=== PATIENT | female | born 1975 | race Caucasian/White ===

== ENCOUNTER 2016-12-23 21:33 | Emergency (ER) | payer MEDICAID ==
--- NOTE | 2016-12-23 21:42 | ER Document Report ---
ED Medical Screen (RME) - General Stated Complaint: RAPID HEART RATE Mode of Arrival: Ambulatory Information source: Patient Notes: pt pesents to the ED with c/o SOB, heart palpitations, nausea, no chest pain, c/ o back pain. Hx of ICD pacemaker placed in 2013 for hx of 4 massive FL and two stents, angioplasty. Pt HR is 160's. Denies f/v/d. Denies taking any type of cold medications, energy drinks. I have greeted and performed a rapid initial assessment of this patient. A comprehensive ED assessment and evaluation of the patient, analysis of test results and completion of the medical decision making process will be conducted by additional ED providers. TRAVEL OUTSIDE OF THE [place] IN LAST 30 DAYS: No - Related Data Allergies/Adverse Reactions: lisinopril [Lisinopril] Allergy (Mild, Verified 01/30/16 23:26) Past Medical History - Social History Family history: Reviewed & Not Pertinent - Past Medical History Cardiac Medical History: Reports: Hx Coronary Artery Disease, Hx Heart Attack - x5, Hx Hypercholesterolemia, Hx Hypertension Pulmonary Medical History: Reports: Hx Bronchitis, Hx COPD, Hx Pneumonia GI Medical History: Reports: Hx Gastroesophageal Reflux Disease Skin Medical History: Reports Hx Eczema Psychiatric Medical History: Reports: Hx Depression Past Surgical History: Reports: Hx Cardiac Catheterization - w/ stent, Hx Cardiac Surgery - Defibrilator 08/03/15, Hx Section, Hx Gynecologic Surgery - Tubular Ligation - Immunizations Immunizations up to date: No Hx Diphtheria, Pertussis, Tetanus Vaccination: Yes
[2016-12-23] MEDS ORDERED: CARVEDILOL 6.25 MG TABLET PO ONE (22:42)
--- NOTE | 2016-12-23 22:44 | ER Document Report ---
ED General - General Chief Complaint: Irregular Pulse Stated Complaint: RAPID HEART RATE Mode of Arrival: Ambulatory Notes: Patient is a 41-year-old female with past medical history of CHF with EF less than 30% status post AICD and pacer placement, history of tachydysrhythmias, ACS , and hypertension who presents after having a sudden onset of palpitations just prior to arrival. States that she was doing laundry when she abruptly began to feel like "my heart was beating out of my chest". She denies any associated shortness of breath, chest pain or syncope. States she's had similar symptoms in the past but had been on beta blockers previously to help control these episodes. States that her parachute accessories attacher abruptly took her off all her medications except her Plavix several days ago and her last dose of beta manjeet was 2 days ago. At time of my assessment, patient states all her symptoms have spontaneously resolved. During the episode she did not noted anything seemed to improve or worsen her symptoms. She did not do anything to stop the symptoms. She has not seen her primary care doctor regarding today's concerns. TRAVEL OUTSIDE OF THE [place] IN LAST 30 DAYS: No - Related Data Allergies/Adverse Reactions: lisinopril [Lisinopril] Allergy (Mild, Verified 01/30/16 23:26) Past Medical History - General Information source: Patient - Social History Smoking Status: Current Every Day Smoker Chew tobacco use (# tins/day): No Frequency of alcohol use: None Drug Abuse: None Lives with: Spouse/Significant other Family History: CAD, Hypertension Patient has suicidal ideation: No Patient has homicidal ideation: No - Past Medical History Cardiac Medical History: Reports: Hx Coronary Artery Disease, Hx Heart Attack - x5, Hx Hypercholesterolemia, Hx Hypertension Pulmonary Medical History: Reports: Hx Bronchitis, Hx COPD, Hx Pneumonia Renal/ Medical History: Denies: Hx Peritoneal Dialysis GI Medical History: Reports: Hx Gastroesophageal Reflux Disease Skin Medical History: Reports Hx Eczema Psychiatric Medical History: Reports: Hx Depression Past Surgical History: Reports: Hx Cardiac Catheterization - w/ stent, Hx Cardiac Surgery - Defibrilator 08/03/15, Hx Section, Hx Gynecologic Surgery - Tubular Ligation - Immunizations Immunizations up to date: No Hx Diphtheria, Pertussis, Tetanus Vaccination: Yes Review of Systems - Review of Systems Notes: Constitutional: Negative for fever. HENT: Negative for sore throat. Eyes: Negative for visual changes. Cardiovascular: Negative for chest pain. Respiratory: Negative for shortness of breath. Gastrointestinal: Negative for abdominal pain, vomiting or diarrhea. Genitourinary: Negative for dysuria. Musculoskeletal: Negative for back pain. Skin: Negative for rash. Neurological: Negative for headaches, weakness or numbness. 10 point ROS negative except as marked above and in HPI. Physical Exam - Vital signs Vitals: Temp Pulse Resp BP Pulse Ox 97.8 F 167 H 20 167/115 H 98 12/23/16 21:40 12/23/16 21:40 12/23/16 21:40 12/23/16 21:40 12/23/16 21:40 Interpretation: Tachycardic Notes: PHYSICAL EXAMINATION: GENERAL: Well-appearing, well-nourished and in no acute distress. HEAD: Atraumatic, normocephalic. EYES: Pupils equal round and reactive to light, extraocular movements intact, sclera anicteric, conjunctiva are normal. ENT: nares patent, oropharynx clear without exudates. Moist mucous membranes. NECK: Normal range of motion, supple without lymphadenopathy LUNGS: Breath sounds clear to auscultation bilaterally and equal. No wheezes rales or rhonchi. HEART: Regular rate and rhythm without murmurs ABDOMEN: Soft, nontender, normoactive bowel sounds. No guarding, no rebound. No masses appreciated. EXTREMITIES: Normal range of motion, no pitting or edema. No cyanosis. NEUROLOGICAL: No focal neurological deficits. Moves all extremities spontaneously and on command. PSYCH: Normal mood, normal affect. SKIN: Warm, Dry, normal turgor, no rashes or lesions noted. Course - Re-evaluation Re-evalutation: 12/23/16 22:42 Patient presents with sinus tachycardia apparently an initial rate was 167 in triage now in the 110 at the time of my assessment. Normal sinus rhythm with intermittent PVCs. Patient does have a history of severe CHF with a EF apparently below 30%. She has a AICD as well as pacemaker in place and has a history of tachydysrhythmias in the past. Apparently her parachute accessories attacher her off all of her medications except carvedilol and isosorbide dinitrate several days ago and she has not had her carvedilol for the past 2 days. This would appropriately explain her episode of tachycardia which has now mostly resolved. She denies any chest pain or shortness of breath currently or at the time of her episode of palpitations. Her clinical history is not consistent with an aortic dissection or acute pulmonary embolus given the absence of any symptoms at this time. 12/24/16 01:10 Patient has remained completely asymptomatic. Her heart rate has normalized after receiving her normal home carvedilol. Repeat EKG remains without ischemic changes. Her laboratories likewise are unremarkable.At this time will discharge with return precautions and follow-up recommendations. Verbal discharge instructions given a the bedside and opportunity for questions given. Medication warnings reviewed. Patient is in agreement with this plan and has verbalized understanding of return precautions and the need for primary care follow-up in the next 24-72 hours. - Vital Signs Vital signs: Temp Pulse Resp BP Pulse Ox 97.7 F 100 16 142/90 H 96 12/24/16 01:55 12/24/16 01:55 12/24/16 01:55 12/24/16 01:55 12/24/16 01:55 - Laboratory Result Diagrams: 12/23/16 22:51 12/23/16 22:51 Laboratory results interpreted by me: 12/23/16 12/23/16 12/23/16 22:51 22:51 22:51 RDW 16.5 H Creatine Kinase 524 H CK-MB (CK-2) 7.87 H - Diagnostic Test Radiology reviewed: Image reviewed, Reports reviewed Radiology results interpreted by me: 12/24/16 03:39 Chest x-ray: No acute infiltrate - EKG Interpretation by Me Additional EKG results interpreted by me: 12/24/16 01:10 First EKG: Sinus tachycardia, rate 111. No ST elevations or depressions. T- wave inversions in V5 and V6 unchanged from prior. QTC is 468 Second EKG: Rate 96. Sinus rhythm. No ST elevations or depressions. T-wave inversions remained persistent in V5 and 6. QTC is 486. Discharge - Discharge Clinical Impression: Palpitations, Tachycardia Condition: Good Disposition: HOME, SELF-CARE Additional Instructions: Please follow-up closely with cardiology regarding your palpitations. You have been restarted on carvedilol. Return if you pass out, have shortness of breath , persistent vomiting, develop significant chest pain, or have any other symptoms that are concerning to you. Prescriptions: Carvedilol [Coreg 6.25 mg Tablet] 6.25 mg PO Q12 #60 tablet
[2016-12-23 22:57] LABS: ABSOLUTE BASOPHILS # (AUTO) 0.1 10^3/uL (0.0-0.2); ABSOLUTE EOSINOPHILS # (AUTO) 0.1 10^3/uL (0.0-0.6); ABSOLUTE LYMPHOCYTES (AUTO) 3.4 10^3/uL (0.5-4.7); ABSOLUTE MONOCYTES (AUTO) 0.5 10^3/uL (0.1-1.4); ABSOLUTE NEUT (AUTO) 4.1 10^3/uL (1.7-8.2); BASOPHILS % (AUTO) 1.2 % (0-2); EOSINOPHILS % (AUTO) 1.3 % (0-6); HEMATOCRIT 40.6 % (36.0-47.0); HEMOGLOBIN 13.9 g/dL (12.0-15.5); HGB HCT DIFFERENCE 1.1; LYMPHOCYTES % (AUTO) 41.3 % (13-45); MEAN CORPUSCULAR HEMOGLOBIN 30.1 pg (27.0-33.4); MEAN CORPUSCULAR HGB CONC 34.3 g/dL (32.0-36.0); MEAN CORPUSCULAR VOLUME 88 fl (80-97); MONOCYTES % (AUTO) 5.9 % (3-13); RED BLOOD COUNT 4.62 10^6/uL (3.72-5.28); RED CELL DISTRIBUTION WIDTH 16.5 % (11.5-14.0); SEGMENTED NEUTROPHILS % (AUTO) 50.3 % (42-78); WHITE BLOOD COUNT 8.3 10^3/uL (4.0-10.5)
[2016-12-23 23:16] LABS: ALANINE AMINOTRANSFERASE 31 U/L (9-52); ALBUMIN 4.1 g/dL (3.5-5.0); ALKALINE PHOSPHATASE 80 U/L (38-126); ANION GAP 9 (5-19); ASPARTATE AMINO TRANSFERASE 23 U/L (14-36); BILIRUBIN,TOTAL 0.5 mg/dL (0.2-1.3); BLOOD UREA NITROGEN 12 mg/dL (7-20); CALCIUM 10.2 mg/dL (8.4-10.2); CARBON DIOXIDE 29 mmol/L (22-30); CHLORIDE 103 mmol/L (98-107); CREATINE KINASE 524 U/L (30-135); CREATININE RESULT 0.89 mg/dL (0.52-1.25); GLUCOSE 90 mg/dL (75-110); POTASSIUM 4.4 mmol/L (3.6-5.0); SODIUM 141.2 mmol/L (137-145); TOTAL PROTEIN 7.3 g/dL (6.3-8.2)
[2016-12-23 23:28] LABS: CREATINE KINASE MB 7.87 ng/mL (<4.55); TROPONIN I 0.017 ng/mL
--- NOTE | 2016-12-23 23:50 | EKG REPORT ---
SEVERITY:- ABNORMAL ECG - SINUS TACHYCARDIA FRANK, CONSIDER BIATRIAL ABNORMALITIES NONSPECIFIC INTRAVENTRICULAR CONDUCTION DELAY LVH WITH SECONDARY REPOLARIZATION ABNORMALITY PROBABLE INFERIOR INFARCT, AGE INDETERMINATE : Confirmed by: Chetan Jaramillo 23-Dec-2016 23:49:10
[2016-12-24 01:58] VITALS: BP 142/90
--- NOTE | 2016-12-24 13:51 | EKG REPORT ---
SEVERITY:- ABNORMAL ECG - SINUS RHYTHM NONSPECIFIC INTRAVENTRICULAR CONDUCTION DELAY PROBABLE LVH WITH SECONDARY REPOL ABNRM INFERIOR INFARCT, AGE INDETERMINATE : Confirmed by: Chetan Jaramillo 24-Dec-2016 13:51:09
== END 2016-12-24 01:55 | disposition home or self-care (01) ==
LOC: ER 21:33
DX: R00.2 Palpitations (principal); R00.0 Tachycardia, unspecified; I50.9 Heart failure, unspecified; F17.200 Nicotine dependence, unspecified, uncomplicated
CPT/HCPCS: 93005 ×2; 99285; 36415; 82553; 82550; 84703; 85025; 80053; 84484; 71010; 93010 ×2; J3490

== ENCOUNTER 2017-05-17 14:25 | Observation (INO) | payer MEDICAID ==
--- NOTE | 2017-05-17 14:33 | ER Document Report ---
ED Cardiac - General Chief Complaint: Chest Pain Stated Complaint: CHEST PAIN Time Seen by Provider: 05/17/17 14:28 Notes: Patient is a 42-year-old female, past medical history CAD with stents ([place] x4 times), CHF with AICD placement in 2007, hypertension, presents with 2 hours of left upper chest pain with radiation into her left shoulder. She was at rest when this started. She was given 324 mg aspirin and 3 sublingual nitros with some relief of her chest pain, although she said it is still mildly present. Patient denies shortness of breath, nausea, vomiting, numbness, tingling, fevers , cough, leg swelling or abdominal pain. TRAVEL OUTSIDE OF THE [place] IN LAST 30 DAYS: No - Related Data Allergies/Adverse Reactions: lisinopril [Lisinopril] Allergy (Mild, Verified 01/30/16 23:26) Past Medical History - General Information source: Patient - Social History Smoking Status: Current Every Day Smoker Family History: CAD, Hypertension - Past Medical History Cardiac Medical History: Reports: Hx Coronary Artery Disease, Hx Heart Attack - x5, Hx Hypercholesterolemia, Hx Hypertension Pulmonary Medical History: Reports: Hx Bronchitis, Hx COPD, Hx Pneumonia Renal/ Medical History: Denies: Hx Peritoneal Dialysis GI Medical History: Reports: Hx Gastroesophageal Reflux Disease Skin Medical History: Reports Hx Eczema Psychiatric Medical History: Reports: Hx Depression Past Surgical History: Reports: Hx Cardiac Catheterization - w/ stent, Hx Cardiac Surgery - Defibrilator 08/03/15, Hx Section, Hx Gynecologic Surgery - Tubular Ligation - Immunizations Immunizations up to date: No Hx Diphtheria, Pertussis, Tetanus Vaccination: Yes Review of Systems - Review of Systems Notes: REVIEW OF SYSTEMS: CONSTITUTIONAL: -fevers, -chills EENT: -eye pain, -difficulty swallowing, -nasal congestion CARDIOVASCULAR: +chest pain, -syncope. RESPIRATORY: -cough, -SOB GASTROINTESTINAL: -abdominal pain, - nausea, -vomiting, -diarrhea GENITOURINARY: -dysuria, -hematuria MUSCULOSKELETAL: -back pain, -neck pain SKIN: -rash or skin lesions. HEMATOLOGIC: -easy bruising or bleeding. LYMPHATIC: -swollen, enlarged glands. NEUROLOGICAL: -altered mental status or loss of consciousness, -headache, - neurologic symptoms PSYCHIATRIC: -anxiety, -depression. ALL OTHER SYSTEMS REVIEWED AND NEGATIVE. Physical Exam - Vital signs Vitals: Temp Pulse Resp BP Pulse Ox 98.1 F 85 14 107/65 95 05/17/17 14:30 05/17/17 14:30 05/17/17 14:30 05/17/17 14:30 05/17/17 14:30 - Notes Notes: PHYSICAL EXAMINATION: GENERAL: Well-appearing, well-nourished and in no acute distress. HEAD: Atraumatic, normocephalic. EYES: Pupils equal round and reactive to light, extraocular movements intact, sclera anicteric, conjunctiva are normal. ENT: nares patent, oropharynx clear without exudates. Moist mucous membranes. NECK: Normal range of motion, supple without lymphadenopathy LUNGS: Breath sounds clear to auscultation bilaterally and equal. No wheezes rales or rhonchi. HEART: Regular rate and rhythm without murmurs ABDOMEN: Soft, nontender, normoactive bowel sounds. No guarding, no rebound. No masses appreciated. EXTREMITIES: Normal range of motion, no pitting or edema. No cyanosis. NEUROLOGICAL: Cranial nerves grossly intact. Normal speech, normal gait. Normal sensory and motor exams. PSYCH: Normal mood, normal affect. SKIN: Warm, Dry, normal turgor, no rashes or lesions noted. Course - Re-evaluation Re-evalutation: Patient's chest pain resolved with nitro paste. She was very provided with aspirin by EMS prior to arrival. Patient's primary care physician is Lore Marie and her information technology teacher is in [place]. Her HEART score is 5 (1 for EKG, 2 for risk factors, 2 for concerning story). First troponin negative and EKG unchanged. Symptoms atypical for PE or aortic dissection at this time. 05/17/17 15:[address] Pillai and she was admit patient to [facility] Observ[facility]. - Vital Signs Vital signs: Temp Pulse Resp BP Pulse Ox 98.1 F 85 14 107/65 95 05/17/17 14:30 05/17/17 14:30 05/17/17 14:30 05/17/17 14:30 05/17/17 14:30 - Laboratory Result Diagrams: 05/17/17 14:38 05/17/17 14:38 Laboratory results interpreted by me: 05/17/17 05/17/17 14:38 14:38 RDW 14.9 H Creatine Kinase 432 H - Diagnostic Test Radiology reviewed: Image reviewed, Reports reviewed - EKG Interpretation by Me EKG shows normal: Sinus rhythm Rate: Normal Rhythm: PVC's - single [place]/QRS: IVCD When compared to previous EKG there are: No significant change - old EKG 2016 Additional EKG results interpreted by me: No STEMI Discharge - Discharge Clinical Impression: Chest pain Qualifiers: Chest pain type: unspecified Qualified Code(s): R07.9 - Chest pain, unspecified Condition: Stable Disposition: ADMITTED OBSERVATION [facility] Unit Admitted: Telemetry
[2017-05-17 14:51] LABS: ABSOLUTE BASOPHILS # (AUTO) 0.1 10^3/uL (0.0-0.2); ABSOLUTE LYMPHOCYTES (AUTO) 1.7 10^3/uL (0.5-4.7); ABSOLUTE MONOCYTES (AUTO) 0.3 10^3/uL (0.1-1.4); ABSOLUTE NEUT (AUTO) 5.2 10^3/uL (1.7-8.2); BASOPHILS % (AUTO) 0.8 % (0-2); EOSINOPHILS % (AUTO) 0.7 % (0-6); HEMATOCRIT 39.8 % (36.0-47.0); HEMOGLOBIN 13.8 g/dL (12.0-15.5); HGB HCT DIFFERENCE 1.6; LYMPHOCYTES % (AUTO) 23.1 % (13-45); MEAN CORPUSCULAR HEMOGLOBIN 32.1 pg (27.0-33.4); MEAN CORPUSCULAR HGB CONC 34.6 g/dL (32.0-36.0); MEAN CORPUSCULAR VOLUME 93 fl (80-97); MONOCYTES % (AUTO) 4.5 % (3-13); RED BLOOD COUNT 4.29 10^6/uL (3.72-5.28); RED CELL DISTRIBUTION WIDTH 14.9 % (11.5-14.0); SEGMENTED NEUTROPHILS % (AUTO) 70.9 % (42-78); WHITE BLOOD COUNT 7.4 10^3/uL (4.0-10.5)
[2017-05-17 15:08] LABS: ALANINE AMINOTRANSFERASE 23 U/L (9-52); ALKALINE PHOSPHATASE 69 U/L (38-126); ANION GAP 11 (5-19); ASPARTATE AMINO TRANSFERASE 24 U/L (14-36); BILIRUBIN,DIRECT 0.3 mg/dL (0.0-0.4); BILIRUBIN,TOTAL 0.5 mg/dL (0.2-1.3); BLOOD UREA NITROGEN 8 mg/dL (7-20); CALCIUM 8.8 mg/dL (8.4-10.2); CARBON DIOXIDE 24 mmol/L (22-30); CHLORIDE 102 mmol/L (98-107); CREATINE KINASE 432 U/L (30-135); CREATININE RESULT 0.83 mg/dL (0.52-1.25); GLUCOSE 107 mg/dL (75-110); POTASSIUM 4.7 mmol/L (3.6-5.0); SODIUM 137.1 mmol/L (137-145); TOTAL PROTEIN 7.3 g/dL (6.3-8.2)
--- NOTE | 2017-05-17 15:14 | RADIOLOGY REPORT (SQ) ---
EXAM DESCRIPTION: CHEST SINGLE VIEW COMPLETED DATE/TIME: 05/17/2017 3:01 pm REASON FOR STUDY: cp COMPARISON: 12/23/2016 EXAM PARAMETERS: NUMBER OF VIEWS: One view. TECHNIQUE: Single frontal radiographic view of the chest acquired. RADIATION DOSE: NA LIMITATIONS: None. FINDINGS: LUNGS AND PLEURA: No opacities, masses or pneumothorax. No pleural effusion. MEDIASTINUM AND HILAR STRUCTURES: No masses. Contour normal. HEART AND VASCULAR STRUCTURES: Heart normal in size. Normal vasculature. BONES: No acute findings. HARDWARE: Pacemaker/defibrillator. OTHER: No other significant finding. IMPRESSION: NO ACUTE RADIOGRAPHIC FINDING IN THE CHEST. TECHNICAL DOCUMENTATION: JOB ID: [id number]
[2017-05-17] MEDS ORDERED: NITROGLYCERIN 2% OINTMENT 1 GM PACKET TP ONE (15:48)
[2017-05-17] MEDS ORDERED: ONDANSETRON HCL INJ/PF 4 MG/2 ML SDV IV PRN (16:14)
[2017-05-17] MEDS ORDERED: MORPHINE SULFATE 10 MG/ML INJ IV PRN (16:14)
[2017-05-17] MEDS ORDERED: DIAZEPAM 5 MG TABLET PO PRN (16:14)
[2017-05-17] MEDS ORDERED: NITROGLYCERIN 0.4 MG/TAB 25 TAB/BOTTLE SL PRN (16:14)
[2017-05-17] MEDS ORDERED: FUROSEMIDE INJ/PF 20 MG/2 ML SDV IV ONE (16:45)
--- NOTE | 2017-05-17 16:53 | PDOC H&P ---
History of Present Illness Admission Date/PCP: 05/17/17 Lore frank History of Present Illness: ERNESTO CUEVAS is a 42 year old female with a past medical history significant for coronary artery disease, COPD, emphysema, ongoing tobacco abuse , AICD with a last known EF of 25% who presents to the emergency department with chest pain. Patient reports she was sitting and began having substernal chest pain that radiated to her left arm. This was associated with nausea and vomiting as well as diaphoresis but no shortness of breath. Patient also reports that she had a metallic taste in her mouth prior to this. She does report she has been under more stress than normal. She reports that it was worse with laying and improved slightly with nitroglycerin but has not fully resolved. She reports that she is previously been on Xanax. Patient is referred to hospital service for chest pain. Patient's medications are currently unavailable and are currently being reconciled. This current list is automatically generated by [employer]. Past Medical History Cardiac Medical History: Reports: Coronary Artery Disease, Myocardial Infarction - x5, Hyperlipidema, Hypertension Pulmonary Medical History: Reports: Bronchitis, Chronic Obstructive Pulmonary Disease (COPD), Pneumonia GI Medical History: Reports: Gastroesophageal Reflux Disease Skin Medical History: Reports: Eczema Psychiatric Medical History: Reports: Depression, General Anxiety Disorder, Tobacco Dependency Past Surgical History Past Surgical History: Reports: Cardiac Catheterization - w/ stent, Section Social History Smoking Status: Current Every Day Smoker Cigarettes Packs Per Day: 1 Frequency of Alcohol Use: None Hx Recreational Drug Use: No Hx Prescription Drug Abuse: No - Advance Directive Resuscitation Status: Full Code Surrogate healthcare decision maker:: Mother, Guerda Cuevas Family History Family History: CAD, Hypertension Parental Family History Reviewed: Yes Children Family History Reviewed: Yes Sibling(s) Family History Reviewed.: Yes Medication/Allergy Allergies/Adverse Reactions: lisinopril [Lisinopril] Allergy (Mild, Verified 01/30/16 23:26) Review of Systems Constitutional: ABSENT: chills, fever(s), headache(s), weight gain, weight loss Eyes: ABSENT: visual disturbances Ears: ABSENT: hearing changes Cardiovascular: PRESENT: as per HPI, chest pain, edema. ABSENT: dyspnea on exertion, orthropnea, palpitations Respiratory: PRESENT: cough, dyspnea. ABSENT: hemoptysis, sputum Gastrointestinal: PRESENT: as per HPI, heartburn, nausea, vomiting. ABSENT: abdominal pain, constipation, diarrhea, hematemesis, hematochezia, melena Genitourinary: ABSENT: dysuria, hematuria Musculoskeletal: ABSENT: joint swelling Integumentary: ABSENT: rash, wounds Neurological: ABSENT: abnormal gait, abnormal speech, confusion, dizziness, focal weakness, syncope Psychiatric: ABSENT: anxiety, depression, homidical ideation, suicidal ideation Endocrine: ABSENT: cold intolerance, heat intolerance, polydipsia, polyuria Hematologic/Lymphatic: ABSENT: easy bleeding, easy bruising Physical Exam Vital Signs: Temp Pulse Resp BP Pulse Ox 98.1 F 85 14 107/65 95 05/17/17 14:30 05/17/17 14:30 05/17/17 14:30 05/17/17 14:30 05/17/17 14:30 General appearance: PRESENT: obese, well-developed, well-nourished Head exam: PRESENT: atraumatic, normocephalic Eye exam: PRESENT: conjunctiva pink, EOMI, PERRLA. ABSENT: scleral icterus Ear exam: PRESENT: normal external ear exam Mouth exam: PRESENT: moist, tongue midline Neck exam: ABSENT: JVD, lymphadenopathy, thyromegaly, tracheal deviation Respiratory exam: PRESENT: prolonged expiratory phas, symmetrical, unlabored. ABSENT: accessory muscle use, clear to auscultation teri - Coarse bilaterally, rales, rhonchi, tachypnea, wheezes Cardiovascular exam: PRESENT: RRR, +S1, +S2. ABSENT: diastolic murmur, rubs, systolic murmur Pulses: PRESENT: normal dorsalis pedis pul Vascular exam: PRESENT: normal capillary refill GI/Abdominal exam: PRESENT: normal bowel sounds, soft. ABSENT: distended, firm , guarding, mass, Hickman's sign, organolmegaly, rebound, rigid, tenderness Rectal exam: PRESENT: deferred Extremities exam: PRESENT: full ROM, +1 edema. ABSENT: calf tenderness, clubbing Neurological exam: PRESENT: alert, awake, oriented to person, oriented to place , oriented to time, oriented to situation, CN II-XII grossly intact. ABSENT: motor sensory deficit Psychiatric exam: PRESENT: appropriate affect, normal mood. ABSENT: homicidal ideation, suicidal ideation Skin exam: PRESENT: dry, intact, warm. ABSENT: cyanosis, rash Results Laboratory Results: 05/17/17 14:38 05/17/17 14:38 05/17/17 05/17/17 14:38 14:38 WBC 7.4 RBC 4.29 Hgb 13.8 Hct 39.8 MCV 93 MCH 32.1 MCHC 34.6 RDW 14.9 H Plt Count 275 Seg Neutrophils % 70.9 Lymphocytes % 23.1 Monocytes % 4.5 Eosinophils % 0.7 Basophils % 0.8 Absolute Neutrophils 5.2 Absolute Lymphocytes 1.7 Absolute Monocytes 0.3 Absolute Eosinophils 0.0 Absolute Basophils 0.1 Sodium 137.1 Potassium 4.7 Chloride 102 Carbon Dioxide 24 Anion Gap 11 BUN 8 Creatinine 0.83 Est GFR ( Amer) > 60 Est GFR (Non-Af Amer) > 60 Glucose 107 Calcium 8.8 Total Bilirubin 0.5 AST 24 ALT 23 Alkaline Phosphatase 69 Total Protein 7.3 Albumin 4.0 05/17/17 05/17/17 14:38 14:38 Creatine Kinase 432 H Troponin I < 0.012 EKG Comments: Old inferior PR, PVC, LVH, NSR Impressions: Chest X-Ray 05/17/17 14:27 IMPRESSION: NO ACUTE RADIOGRAPHIC FINDING IN THE CHEST. Assessment & Plan - Diagnosis (1) Chest pain Qualifiers: Chest pain type: unspecified Qualified Code(s): R07.9 - Chest pain, unspecified Is this a current diagnosis for this admission?: YesPlan: Patient pain sounds as though it is associated with GERD or indigestion. Patient reports that she only infrequently takes her Prilosec. However, in light of patient's significant past coronary history we will observe her and rule out for acute coronary syndrome. Place patient on telemetry. Patient has an allergy to RUBINA inhibitors. Nitro as needed (2) COPD (chronic obstructive pulmonary disease) Qualifiers: COPD type: emphysema Emphysema type: unspecified Qualified Code( s): J43.9 - Emphysema, unspecified Is this a current diagnosis for this admission?: YesPlan: As needed nebulized treatments (3) Obesity Qualifiers: Obesity type: due to excess calories Obesity classification: adult class 1 (BMI 30 ? 34.9) Body mass index: unspecified BMI Is this a current diagnosis for this admission?: Yes (4) Hypertension Qualifiers: Hypertension type: essential hypertension Qualified Code(s): I10 - Essential (primary) hypertension Is this a current diagnosis for this admission?: Yes (5) Anxiety Is this a current diagnosis for this admission?: Yes (6) GERD (gastroesophageal reflux disease) Qualifiers: Esophagitis presence: esophagitis presence not specified Qualified Code(s): K21.9 - Gastro-esophageal reflux disease without esophagitis Is this a current diagnosis for this admission?: YesPlan: Give patient a GI cocktail and started on PPI twice daily. (7) Coronary atherosclerosis Qualifiers: Coronary Disease-Associated Artery/Lesion type: [place] artery [place] vs. transplanted heart: [place] heart Associated angina: with unspecified angina Qualified Code(s): I25.119 - Atherosclerotic heart disease of [place] coronary artery with unspecified angina pectoris Is this a current diagnosis for this admission?: Yes (8) Tobacco abuse Is this a current diagnosis for this admission?: YesPlan: Encourage patient to stop. Nicotine patch Counseling greater than 3 minutes - Time Time Spent: 50 to 70 Minutes Medications reviewed and adjusted accordingly: Yes Anticipated discharge: Home Within: within 24 hours - Inpatient Certification Based on my medical assessment, after consideration of the patient's comorbidities, presenting symptoms, or acuity I expect that the services needed warrant INPATIENT care.: No I certify that my determination is in accordance with my understanding of Medicare's requirements for reasonable and necessary INPATIENT services [42 CFR 412.3e].: No Post Hospital Care: D/C Director Online Marketing Documentation
[2017-05-17] MEDS ORDERED: LIDOCAINE 2% VISCOUS SOLN 20 ML UDCUP PO ONE (17:00)
[2017-05-17] MEDS ORDERED: NICOTINE 21 MG/24 HR PATCH.TD24 TD ONE (17:00)
[2017-05-17] MEDS ORDERED: MAG HYDROX/AL HYDROX/SIMETH SUSP 30 ML UDCUP PO ONE (17:00)
[2017-05-17] MEDS ORDERED: METOCLOPRAMIDE HCL ORAL SOLN 10 MG/10 ML UDCUP PO ONE (17:00)
--- NOTE | 2017-05-17 17:19 | RADIOLOGY REPORT (SQ) ---
EXAM DESCRIPTION: CHEST PA/LAT COMPLETED DATE/TIME: 05/17/2017 5:05 pm REASON FOR STUDY: ?chf exacerbation COMPARISON: Two-view chest 08/28/2016, 01/31/2016 EXAM PARAMETERS: NUMBER OF VIEWS: two views TECHNIQUE: Digital Frontal and Lateral radiographic views of the chest acquired. RADIATION DOSE: NA LIMITATIONS: none FINDINGS: LUNGS AND PLEURA: No opacities, masses or pneumothorax. No pleural effusion. MEDIASTINUM AND HILAR STRUCTURES: No masses or contour abnormalities. HEART AND VASCULAR STRUCTURES: Heart normal size. No evidence for failure. BONES: No acute findings. HARDWARE: Left sided single lead pacemaker. OTHER: No other significant finding. IMPRESSION: NO SIGNIFICANT RADIOGRAPHIC FINDING IN THE CHEST. TECHNICAL DOCUMENTATION: JOB ID: [id number] [employer]- All Rights Reserved
[2017-05-17] MEDS: LANSOPRAZOLE 30 MG TAB.RAP.DR PO SCH (17:24)
[2017-05-17 18:42] LABS: URINE BARBITURATES SCREEN NEGATIVE; URINE METHADONE SCREEN NEGATIVE; URINE OPIATES LOW NEGATIVE; URINE PHENCYCLIDINE SCREEN NEGATIVE
--- NOTE | 2017-05-17 19:07 | EKG REPORT ---
SEVERITY:- ABNORMAL ECG - SINUS RHYTHM VENTRICULAR PREMATURE COMPLEX NONSPECIFIC INTRAVENTRICULAR CONDUCTION DELAY PROBABLE LEFT VENTRICULAR HYPERTROPHY INFERIOR INFARCT, OLD : Confirmed by: Preston Barbosa MD 17-May-2017 19:05:28
[2017-05-17] MEDS ORDERED: ATORVASTATIN CALCIUM 40 MG TABLET PO SCH (22:00)
[2017-05-17 23:15] LABS: CREATINE KINASE MB 10.2 ng/mL (<4.55)
[2017-05-17 23:29] LABS: TROPONIN I 0.349 ng/mL
[2017-05-18] MEDS ORDERED: HEPARIN SODIUM,PORCINE/D5W 250 ML IV PRN (00:19)
[2017-05-18] MEDS ORDERED: HEPARIN SOD (PORCINE) 1,000 UNIT/ML 10 ML VIAL IV PRN (00:19)
[2017-05-18 00:38] LABS: ABSOLUTE BASOPHILS # (AUTO) 0.1 10^3/uL (0.0-0.2); ABSOLUTE EOSINOPHILS # (AUTO) 0.1 10^3/uL (0.0-0.6); ABSOLUTE MONOCYTES (AUTO) 0.6 10^3/uL (0.1-1.4); ABSOLUTE NEUT (AUTO) 3.8 10^3/uL (1.7-8.2); BASOPHILS % (AUTO) 1.1 % (0-2); EOSINOPHILS % (AUTO) 1.1 % (0-6); HEMATOCRIT 37.9 % (36.0-47.0); HEMOGLOBIN 13.9 g/dL (12.0-15.5); HGB HCT DIFFERENCE 3.8; LYMPHOCYTES % (AUTO) 40.4 % (13-45); MEAN CORPUSCULAR HEMOGLOBIN 34.1 pg (27.0-33.4); MEAN CORPUSCULAR HGB CONC 36.5 g/dL (32.0-36.0); MEAN CORPUSCULAR VOLUME 93 fl (80-97); MONOCYTES % (AUTO) 7.4 % (3-13); RED BLOOD COUNT 4.07 10^6/uL (3.72-5.28); RED CELL DISTRIBUTION WIDTH 15.2 % (11.5-14.0); WHITE BLOOD COUNT 7.5 10^3/uL (4.0-10.5)
[2017-05-18 00:44] LABS: PROTHROMBIN TIME 12.3 SEC (11.4-15.4)
[2017-05-18 00:45] LABS: PARTIAL THROMBOPLASTIN TIME 27.8 SEC (23.5-35.8)
[2017-05-18] MEDS: LANSOPRAZOLE 30 MG TAB.RAP.DR PO SCH (05:03)
[2017-05-18 07:14] LABS: APPEARANCE,URINE SLIGHTLY-CLOUDY; BILIRUBIN,URINE NEGATIVE (NEGATIVE); GLUCOSE, URINE NEGATIVE (NEGATIVE); KETONES,URINE NEGATIVE (NEGATIVE); LEUKOCYTE ESTERASE,URINE NEGATIVE (NEGATIVE); NITRITE,URINE NEGATIVE (NEGATIVE); PROTEIN,URINE NEGATIVE (NEGATIVE); URINE SPECIFIC GRAVITY 1.014; UROBILINOGEN,URINE NEGATIVE mg/dL (<2.0)
[2017-05-18 07:15] LABS: CHOLESTEROL 211.13 mg/dL (0-200); CREATINE KINASE 520 U/L (30-135); Direct HDL 27 mg/dL (>40); TRIGLYCERIDES 523 mg/dL (<150)
[2017-05-18 07:27] LABS: CREATINE KINASE MB 30.2 ng/mL (<4.55); TROPONIN I 6.61 ng/mL
[2017-05-18] MEDS ORDERED: ALBUTEROL SULFATE HFA (90 MCG/PUFF) 200 PUFF/8.5 GM MDI IH PRN (07:28)
[2017-05-18] MEDS ORDERED: OXYCODONE HCL IR 5 MG TABLET PO PRN (07:34)
[2017-05-18 08:19] LABS: DIRECT LDL 99 mg/dL (<100)
[2017-05-18 09:08] LABS: ANION GAP 10 (5-19); BLOOD UREA NITROGEN 11 mg/dL (7-20); CALCIUM 8.6 mg/dL (8.4-10.2); CARBON DIOXIDE 23 mmol/L (22-30); CHLORIDE 103 mmol/L (98-107); GLUCOSE 104 mg/dL (75-110); POTASSIUM 3.9 mmol/L (3.6-5.0); SODIUM 136.2 mmol/L (137-145)
[2017-05-18] MEDS ORDERED: CLOPIDOGREL BISULFATE 300 MG TABLET PO ONE (09:30)
[2017-05-18] MEDS ORDERED: CARVEDILOL 6.25 MG TABLET PO SCH (10:00)
[2017-05-18] MEDS ORDERED: LOSARTAN POTASSIUM 50 MG TABLET PO SCH (10:00)
[2017-05-18] MEDS ORDERED: BUMETANIDE 1 MG TABLET PO SCH (10:00)
[2017-05-18] MEDS ORDERED: ASPIRIN 325 MG TABLET, ENT COATED PO SCH (10:00)
[2017-05-18] MEDS ORDERED: CLOPIDOGREL BISULFATE 75 MG TABLET PO SCH (10:00)
[2017-05-18] MEDS ORDERED: NICOTINE 21 MG/24 HR PATCH.TD24 TD SCH (10:00)
[2017-05-18] MEDS ORDERED: SENNOSIDES/DOCUSATE 8.6-50 MG 1 EACH TABLET PO SCH (10:00)
--- NOTE | 2017-05-18 10:01 | EKG REPORT ---
SEVERITY:- ABNORMAL ECG - SINUS RHYTHM NONSPECIFIC INTRAVENTRICULAR CONDUCTION DELAY PROBABLE INFERIOR INFARCT, AGE INDETERMINATE NONSPECIFIC ST-T CHANGES LATERAL LEADS : Confirmed by: Preston Barbosa MD 18-May-2017 10:00:44
--- NOTE | 2017-05-18 10:02 | EKG REPORT ---
SEVERITY:- ABNORMAL ECG - SINUS RHYTHM INCOMPLETE LEFT BUNDLE BRANCH BLOCK BORDERLINE R WAVE PROGRESSION, ANTERIOR LEADS : Confirmed by: Preston Barbosa MD 18-May-2017 10:01:50
--- NOTE | 2017-05-18 10:02 | EKG REPORT ---
SEVERITY:- ABNORMAL ECG - SINUS RHYTHM NONSPECIFIC INTRAVENTRICULAR CONDUCTION DELAY PROBABLE LEFT VENTRICULAR HYPERTROPHY INFERIOR INFARCT, AGE INDETERMINATE : Confirmed by: Preston Barbosa MD 18-May-2017 10:02:11
[2017-05-18] MEDS ORDERED: NITROGLYCERIN 2% OINTMENT 1 GM PACKET TP ONE (12:33)
--- NOTE | 2017-05-18 12:42 | PDOC TRANSFER SUMMARY ---
General Admission Date/PCP: 05/17/17 16:14 Admission Date: 05/17/17 Transfer Date: 05/18/17 Accepting Facility: [facility] Accepting Physician: Dr. Palacios Resuscitation Status: Full Code - Transfer Diagnosis (1) NSTEMI, initial episode of care Is this a current diagnosis for this admission?: Yes (2) COPD (chronic obstructive pulmonary disease) Is this a current diagnosis for this admission?: Yes (3) Obesity Is this a current diagnosis for this admission?: Yes (4) Hypertension Is this a current diagnosis for this admission?: Yes (5) Anxiety Is this a current diagnosis for this admission?: Yes (6) GERD (gastroesophageal reflux disease) Is this a current diagnosis for this admission?: Yes (7) Coronary atherosclerosis Is this a current diagnosis for this admission?: Yes (8) Tobacco abuse Is this a current diagnosis for this admission?: Yes - Transfer Medications Home Medications: Albuterol Sulfate [Proair HFA Inhalation Aerosol 8.5 gm MDI] 2 puff IH Q4HP PRN 05/17/17 Bumetanide [Bumex 1 mg Tablet] 1 mg PO DAILY 05/17/17 Carvedilol [Coreg 6.25 mg Tablet] 6.25 mg PO Q12 05/17/17 Clopidogrel Bisulfate [Plavix 75 mg Tablet] 75 mg PO DAILY 05/17/17 Losartan Potassium [Cozaar 50 mg Tablet] 50 mg PO DAILY 05/17/17 Omeprazole 40 mg PO DAILY 05/17/17 Oxycodone HCl 20 mg PO Q4HP PRN 05/17/17 Transfer Medications: Current Medications Albuterol (Proair Hfa Inhalation Aerosol 8.5 Gm Mdi) 2 puff IH Q4HP PRN PRN Reason: FOR SHORTNESS OF BREATH Stop: 06/17/17 07:27 Aspirin (Ecotrin 325 Mg Ec Tablet) 325 mg PO DAILY SITA Stop: 06/17/17 09:59 Last Admin: 05/18/17 10:14 Dose: 325 mg Atorvastatin Calcium (Lipitor 40 Mg Tablet) 40 mg PO QHS SITA Stop: 06/16/17 21:59 Last Admin: 05/17/17 21:51 Dose: Not Given Carvedilol (Coreg 6.25 Mg Tablet) 6.25 mg PO Q12 SITA Stop: 06/17/17 09:59 Last Admin: 05/18/17 10:13 Dose: 6.25 mg Clopidogrel Bisulfate (Plavix 75 Mg Tablet) 75 mg PO DAILY SITA Stop: 06/17/17 09:59 Diazepam (Valium 5 Mg Tablet) 5 mg PO Q6HP PRN PRN Reason: ANXIETY Stop: 05/24/17 16:13 Famotidine (Pepcid Inj/Pf 20 Mg/2 Ml Sdv) 20 mg IV NOW ONE Stop: 05/18/17 17:01 Heparin Sodium (Porcine) (Heparin Inj 1,000 Unit/Ml 10 Ml Vial) 0 - 12,000 unit IV .BOLUS PER PROTOCOL PRN; Protocol PRN Reason: RESPOND TO aPTT VALUE Stop: 06/17/17 00:18 Last Admin: 05/18/17 01:22 Dose: 4,000 unit Heparin Sodium/Dextrose (Heparin Rtu 25,000 Unit/250 Ml D5w Premix) 250 mls @ 0 mls/hr IV CONTINUOUS PRN; Protocol; Titrate PRN Reason: THIS MED IS NOT "PRN" Stop: 06/17/17 00:18 Last Admin: 05/18/17 01:23 Dose: 250 ml Lansoprazole (Prevacid 30 Mg Odt Tablet) 30 mg PO BID@0600,1700 SITA Stop: 06/16/17 16:59 Last Admin: 05/18/17 05:03 Dose: 30 mg Losartan Potassium (Cozaar 50 Mg Tablet) 50 mg PO DAILY SITA Stop: 06/17/17 09:59 Last Admin: 05/18/17 10:14 Dose: 50 mg Morphine Sulfate (Morphine 10 Mg/Ml Inj) 2 mg IV Q4HP PRN PRN Reason: pain if not relieved by nitro Stop: 05/24/17 16:13 Nicotine (Nicoderm 21 Mg/24 Hr Transderm Patch) 1 each TD DAILY SITA Stop: 06/17/17 09:59 Last Admin: 05/18/17 10:13 Dose: 1 each Nitroglycerin (Nitrostat 0.4 Mg (1/150 Gr) Tabs 25/Bottle) 1 tab SL Q5MP PRN PRN Reason: chest pain Stop: 05/19/17 16:15 Nitroglycerin (Nitrol 2% Ointment 1gm Packet) 1 gm TP NOW ONE Stop: 05/18/17 12:34 Ondansetron HCl (Zofran Inj/Pf 4 Mg/2 Ml Sdv) 4 mg IV Q6HP PRN PRN Reason: nausea Stop: 06/16/17 16:13 Oxycodone HCl (Oxy-Ir 5 Mg Tablet) 20 mg PO Q6HP PRN PRN Reason: PAIN Stop: 05/25/17 07:33 Senna/Docusate Sodium (Senna Plus Tablet) 1 each PO BID SITA Stop: 06/17/17 09:59 Sodium Chloride (Saline Flush 2.5 Ml Monoject Prefil Syrin) 2.5 ml IV Q8 SITA Stop: 06/16/17 21:59 Last Admin: 05/18/17 05:04 Dose: 2.5 ml - Allergies Allergies/Adverse Reactions: lisinopril [Lisinopril] Allergy (Mild, Verified 01/30/16 23:26) - Diet/Activity Discharge Diet: Cardiac Hospital Course Hospital Course: ERNESTO CUEVAS is a 42 year old female with a past medical history significant for coronary artery disease, COPD, emphysema, ongoing tobacco abuse , AICD with a last known EF of 25% who presents to the emergency department with chest pain. Patient reports she was sitting and began having substernal chest pain that radiated to her left arm. This was associated with nausea and vomiting as well as diaphoresis but no shortness of breath. Patient also reports that she had a metallic taste in her mouth prior to this. She does report she has been under more stress than normal. She reports that it was worse with laying and improved slightly with nitroglycerin but has not fully resolved. Patient also states this feels like her last chest pain with her heart attack. She reports that she is previously been on Xanax. Patient was placed on observation and found to have elevated second troponin at 0.3 and third troponin being 6.6. Patient is chest pain free. Patient was given Plavix 300mg po x1 and heparin ggt was started with bolus. EKG remained unchanged. Patient is pending bed at [facility]. Physical Exam Vital Signs: Temp Pulse Resp BP Pulse Ox 98.2 F 83 18 136/91 H 97 05/18/17 07:28 05/18/17 07:28 05/18/17 07:28 05/18/17 07:28 05/18/17 07:28 Intake & Output 05/17/17 05/18/17 05/19/17 06:59 06:59 06:59 Intake Total 656 Balance 656 Weight 101 kg Exam: General: Obese, awake alert and oriented x3, no acute respiratory distress HEENT: AT/NC, PERRL, EOMI, oropharynx is moist, pink, no scleral icterus, no conjunctival injection Neck: No JVD, trachea midline Chest: prolonged expiratory phase, Clear to auscultation bilaterally, no wheezes rhonchi or rales CV: Regular rate and rhythm, normal S1 and S2, no rub, or gallop; 2/6 sm llsb Abdomen: Soft, nontender to palpation, nondistended, active bowel sounds; no rebound, rigidity, or guarding Extremities: No cyanosis, clubbing or edema Neuro: Cranial nerves II through XII are grossly intact without focal deficits; awake alert and oriented x3 Psych: Normal mood and affect Results Laboratory Results: 05/18/17 00:30 05/18/17 06:45 05/18/17 05/18/17 05/18/17 00:30 06:45 06:45 WBC 7.5 RBC 4.07 Hgb 13.9 Hct 37.9 MCV 93 MCH 34.1 H MCHC 36.5 H RDW 15.2 H Plt Count 252 Seg Neutrophils % 50.0 Lymphocytes % 40.4 Monocytes % 7.4 Eosinophils % 1.1 Basophils % 1.1 Absolute Neutrophils 3.8 Absolute Lymphocytes 3.0 Absolute Monocytes 0.6 Absolute Eosinophils 0.1 Absolute Basophils 0.1 Sodium 136.2 L Potassium 3.9 Chloride 103 Carbon Dioxide 23 Anion Gap 10 BUN 11 Creatinine 0.90 Est GFR ( Amer) > 60 Est GFR (Non-Af Amer) > 60 Glucose 104 Calcium 8.6 Triglycerides 523 H Cholesterol 211.13 H LDL Cholesterol Direct 99 VLDL Cholesterol UNABLE TO CALCULATE HDL Cholesterol 27 L Urine Color Urine Appearance Urine pH Ur Specific [place] Urine Protein Urine Glucose (UA) Urine Ketones Urine Blood Urine Nitrite Ur Leukocyte Esterase Urine WBC (Auto) Urine RBC (Auto) 05/18/17 06:50 WBC RBC Hgb Hct MCV MCH MCHC RDW Plt Count Seg Neutrophils % Lymphocytes % Monocytes % Eosinophils % Basophils % Absolute Neutrophils Absolute Lymphocytes Absolute Monocytes Absolute Eosinophils Absolute Basophils Sodium Potassium Chloride Carbon Dioxide Anion Gap BUN Creatinine Est GFR ( Amer) Est GFR (Non-Af Amer) Glucose Calcium Triglycerides Cholesterol LDL Cholesterol Direct VLDL Cholesterol HDL Cholesterol Urine Color YELLOW Urine Appearance SLIGHTLY-CLOUDY Urine pH 5.0 Ur Specific [place] 1.014 Urine Protein NEGATIVE Urine Glucose (UA) NEGATIVE Urine Ketones NEGATIVE Urine Blood NEGATIVE Urine Nitrite NEGATIVE Ur Leukocyte Esterase NEGATIVE Urine WBC (Auto) 1 Urine RBC (Auto) 1 05/17/17 05/17/17 05/17/17 18:00 18:00 22:25 Creatine Kinase CK-MB (CK-2) 7.88 H 10.20 H Troponin I 0.059 Cancelled 0.349 05/18/17 05/18/17 05/18/17 00:30 06:45 06:45 Creatine Kinase 405 H 520 H CK-MB (CK-2) 30.20 H Troponin I 6.610 Impressions: Chest X-Ray 05/17/17 14:27 IMPRESSION: NO ACUTE RADIOGRAPHIC FINDING IN THE CHEST. Plan Time Spent: Less than 30 Minutes
[2017-05-18 15:17] VITALS: BP 116/87
[2017-05-18] MEDS ORDERED: FAMOTIDINE INJ/PF 20 MG/2 ML SDV IV ONE (17:00)
[2017-05-18] MEDS ORDERED: RANOLAZINE 500 MG TAB.SR.12H PO SCH (18:00)
--- NOTE | 2017-05-18 18:02 | PDOC CONSULTATION ---
Consultation Consult Date: 05/18/17 Attending physician:: ANDERSON BUTTERFIELD Consult reason:: NSTEMI History of Present Illness Admission Date/PCP: 05/17/17 16:14 Patient complains of: Chest pain History of Present Illness: ERNESTO CUEVAS is a 42 year old female with a past medical history significant for coronary artery disease, COPD, emphysema, ongoing tobacco abuse , AICD with a last known EF of 25% who presents to the emergency department with chest pain. Patient reports she was sitting and began having substernal chest pain that radiated to her left arm. This was associated with nausea and vomiting as well as diaphoresis but no shortness of breath. Patient also reports that she had a metallic taste in her mouth prior to this. She does report she has been under more stress than normal. She reports that it was worse with laying and improved slightly with nitroglycerin but has not fully resolved. She reports that she is previously been on Xanax. Patient is referred to hospital service for chest pain. Patient's medications are currently unavailable and are currently being reconciled. This current list is automatically generated by [employer]. Patient was interviewed. She is currently chest pain-free. She has ambulated to the bathroom without any recurrence of chest pain. Patient is awaiting a bed at [facility] to be transferred. She describes prior history of heart catheterization in 2013 or 2014 at that time she was noted to have no significant CAD and was told to have small vessel disease. 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 Patient also describes history of sleep apnea and currently not compliant with its use. This history was obtained, reviewed and supplemented as well as confirmed. Past Medical History Cardiac Medical History: Reports: Coronary Artery Disease, Myocardial Infarction - x5, Hyperlipidema, Hypertension Pulmonary Medical History: Reports: Bronchitis, Chronic Obstructive Pulmonary Disease (COPD), Pneumonia GI Medical History: Reports: Gastroesophageal Reflux Disease Skin Medical History: Reports: Eczema Psychiatric Medical History: Reports: Depression, General Anxiety Disorder, Tobacco Dependency Past Surgical History Past Surgical History: Reports: Cardiac Catheterization - w/ stent, Section, Internal Defibrillator - Single-chamber defibrillator placement Social History Information Source: Patient Smoking Status: Current Every Day Smoker Cigarettes Packs Per Day: 1 Frequency of Alcohol Use: None Hx Recreational Drug Use: No Hx Prescription Drug Abuse: No - Advance Directive Resuscitation Status: Full Code Surrogate healthcare decision maker:: Patient's mother is the surrogate decision-maker Family History Family History: CAD, Hypertension Parental Family History Reviewed: Yes Children Family History Reviewed: Yes Sibling(s) Family History Reviewed.: Yes Medication/Allergy Home Medications: Albuterol Sulfate [Proair HFA Inhalation Aerosol 8.5 gm MDI] 2 puff IH Q4HP PRN 05/17/17 Bumetanide [Bumex 1 mg Tablet] 1 mg PO DAILY 05/17/17 Carvedilol [Coreg 6.25 mg Tablet] 6.25 mg PO Q12 05/17/17 Clopidogrel Bisulfate [Plavix 75 mg Tablet] 75 mg PO DAILY 05/17/17 Losartan Potassium [Cozaar 50 mg Tablet] 50 mg PO DAILY 05/17/17 Omeprazole 40 mg PO DAILY 05/17/17 Oxycodone HCl 20 mg PO Q4HP PRN 05/17/17 Allergies/Adverse Reactions: lisinopril [Lisinopril] Allergy (Mild, Verified 01/30/16 23:26) Review of Systems Review of Systems: Please see history of present illness and past medical history as wall. Constitutional: No fever or chills reported. Head : No recent chronic headaches, recent head injury. Eyes: No recent eye pain, diplopia, redness, discharge, acute visual changes. Ears: No recent chronic ear pain, acute hearing loss, ear discharge. Oral cavity: No recent ulcerations, bleeding, oral cavity discomfort. Neck: No recent acute neck pain reported. Hematologic: No recent easy bruising or bleeding or hematologic malignancy reported. Lymphatic: No recent lymphatic malignancy, chronic lymphadenopathy reported yet Cardiovascular system review: See history of present illness. Respiratory system review: No recent chronic cough, hemoptysis, blood clots in the lungs reported. Mild Shortness of breath on exertion Gastrointestinal system review: Negative for any recent acute or chronic abdominal pain, hematemesis, melena, recent change in bowel habits. Genitourinary system review: No recent acute or chronic hematuria, flank pain, UTI etc. reported. Skin system review: Negative for any recent abnormal bruising, no rash, no pruritus reported. Neurologic: No prior history of strokes, mini strokes, seizure disorder. Psychologic: No history of major psychosis or major depression reported. Musculoskeletal: Minor aches and pains reported. No acute joint swelling reported. Endocrine: No recent polyuria, polydipsia, recent heat or cold intolerance. Physical Exam Vital Signs: Temp Pulse Resp BP Pulse Ox 97.7 F 85 18 138/81 H 97 05/18/17 11:21 05/18/17 11:21 05/18/17 11:21 05/18/17 11:21 05/18/17 11:21 Intake & Output 05/17/17 05/18/17 05/19/17 06:59 06:59 06:59 Intake Total 656 Balance 656 Weight 101 kg Exam: GENERAL: well-nourished and in no acute distress. Alert and oriented x3 HEAD: Atraumatic, normocephalic. EYES: Pupils equal round and reactive to light, extraocular movements intact, sclera anicteric, conjunctiva are normal. ENT: TMs normal, nares patent, oropharynx clear without exudates. Moist mucous membranes. No oral ulcerations or bleeding gums noted NECK: supple without lymphadenopathy. Trachea is central. No cervical or axillary lymphadenopathy noted. Carotids are 2+, JVD WNL LUNGS: Respiration seems nonlabored, no significant accessory muscle action noted. Breath sounds clear to auscultation bilaterally and equal noted. No wheezes rales or rhonchi noted. No significant dullness noted on percussion. CHEST: Palpation of the chest wall shows no significant chest wall tenderness. No other significant abnormalities noted. Defibrillator noted left-sided chest. 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 ABDOMEN: Soft, no significant tenderness appreciated, normoactive bowel sounds. No guarding, no rebound. No rigidity noted . No masses appreciated. EXTREMITIES: Pedal pulses are 1-2+, no calf tenderness noted. No clubbing or cyanosis.trace to 1+ pedal edema noted NEUROLOGICAL: Focused neurological exam showed no significant neurologic deficit. Normal speech, no focal weakness appreciated. PSYCH: Normal mood, normal affect. Judgment and insight within normal limits. SKIN: No significant ecchymosis, rash, ulcerations or signs of pruritus noted. MUSCULOSKELETAL EXAM: No significant joint swelling noted. Results Laboratory Results: 05/18/17 00:30 05/18/17 06:45 05/18/17 05/18/17 05/18/17 00:30 06:45 06:45 WBC 7.5 RBC 4.07 Hgb 13.9 Hct 37.9 MCV 93 MCH 34.1 H MCHC 36.5 H RDW 15.2 H Plt Count 252 Seg Neutrophils % 50.0 Lymphocytes % 40.4 Monocytes % 7.4 Eosinophils % 1.1 Basophils % 1.1 Absolute Neutrophils 3.8 Absolute Lymphocytes 3.0 Absolute Monocytes 0.6 Absolute Eosinophils 0.1 Absolute Basophils 0.1 Sodium 136.2 L Potassium 3.9 Chloride 103 Carbon Dioxide 23 Anion Gap 10 BUN 11 Creatinine 0.90 Est GFR ( Amer) > 60 Est GFR (Non-Af Amer) > 60 Glucose 104 Calcium 8.6 Triglycerides 523 H Cholesterol 211.13 H LDL Cholesterol Direct 99 VLDL Cholesterol UNABLE TO CALCULATE HDL Cholesterol 27 L Urine Color Urine Appearance Urine pH Ur Specific [place] Urine Protein Urine Glucose (UA) Urine Ketones Urine Blood Urine Nitrite Ur Leukocyte Esterase Urine WBC (Auto) Urine RBC (Auto) 05/18/17 06:50 WBC RBC Hgb Hct MCV MCH MCHC RDW Plt Count Seg Neutrophils % Lymphocytes % Monocytes % Eosinophils % Basophils % Absolute Neutrophils Absolute Lymphocytes Absolute Monocytes Absolute Eosinophils Absolute Basophils Sodium Potassium Chloride Carbon Dioxide Anion Gap BUN Creatinine Est GFR ( Amer) Est GFR (Non-Af Amer) Glucose Calcium Triglycerides Cholesterol LDL Cholesterol Direct VLDL Cholesterol HDL Cholesterol Urine Color YELLOW Urine Appearance SLIGHTLY-CLOUDY Urine pH 5.0 Ur Specific [place] 1.014 Urine Protein NEGATIVE Urine Glucose (UA) NEGATIVE Urine Ketones NEGATIVE Urine Blood NEGATIVE Urine Nitrite NEGATIVE Ur Leukocyte Esterase NEGATIVE Urine WBC (Auto) 1 Urine RBC (Auto) 1 05/17/17 05/17/17 05/17/17 18:00 18:00 22:25 Creatine Kinase CK-MB (CK-2) 7.88 H 10.20 H Troponin I 0.059 Cancelled 0.349 05/18/17 05/18/17 05/18/17 00:30 06:45 06:45 Creatine Kinase 405 H 520 H CK-MB (CK-2) 30.20 H Troponin I 6.610 05/18/17 05/18/17 05/18/17 13:07 13:07 13:07 Creatine Kinase 537 H CK-MB (CK-2) 33.40 H Troponin I 7.640 EKG Comments: Multiple EKGs were reviewed. They all showed inferior Q waves suggestive of prior old inferior myocardial infarction. Minor nonspecific ST-T wave changes noted. Impressions: Chest X-Ray 05/17/17 14:27 IMPRESSION: NO ACUTE RADIOGRAPHIC FINDING IN THE CHEST. Assessment & Plan - Diagnosis (1) NSTEMI, initial episode of care Is this a current diagnosis for this admission?: Yes (2) Hypertension Qualifiers: Hypertension type: essential hypertension Qualified Code(s): I10 - Essential (primary) hypertension Is this a current diagnosis for this admission?: Yes (3) Chest pain Qualifiers: Chest pain type: unspecified Qualified Code(s): R07.9 - Chest pain, unspecified Is this a current diagnosis for this admission?: Yes (4) Tobacco abuse Is this a current diagnosis for this admission?: Yes (5) Cardiac defibrillator in situ Is this a current diagnosis for this admission?: Yes (6) COPD (chronic obstructive pulmonary disease) Qualifiers: COPD type: emphysema Emphysema type: unspecified Qualified Code( s): J43.9 - Emphysema, unspecified Is this a current diagnosis for this admission?: Yes - Notes Notes: Non-STEMI: Patient presented with chest pain, had positive troponin I elevation , nonspecific ST-T wave changes. All this suggests patient did sustain a non- ST segment elevation myocardial infarction. Patient will benefit from a early invasive strategy and therefore agree with expeditious transfer to tertiary care center for heart catheterization. If patient has any recurrent chest pain , consider Aggrastat/Integrilin infusion. Have started patient on Ranexa 500 mg p.o. twice daily. Consider nitroglycerin drip etc. Currently patient adequately treated with heparin, aspirin, Plavix, beta-manjeet, nitrates, RUBINA/ ARB. Hypertension: Reasonably well controlled. Blood pressure goal in this patient is 135/85 or less. This was discussed with the patient. Currently blood pressure under reasonable control. Better medication for this patient are RUBINA inhibitor/ARB/beta manjeet etc. discussed side effects of uncontrolled hypertension and also severe hypotension. Chest pain: Currently chest pain-free. Have started patient on Ranexa. Should patient have recurrent chest pain, consider Aggrastat/Integrilin infusion. Tobacco abuse: Patient has been advised to quit smoking. COPD: Currently is stable. Continue with current management plans. Cardiac defibrillator in situ: Patient has a single-chamber defibrillator in place. No recent discharges noted. Sleep apnea syndrome: Patient encouraged with nightly CPAP therapy and to be compliant with it. - Time Time Spent: 50 to 70 Minutes - CODE STATUS was discussed, patient remains full code. Surrogate decision-maker unchanged. Multiple medical problems were addressed. More than 50% of the time spent coordinating care, discussing management plans with involved caregivers. Management plans discussed with involved personnels. Medical decision making was of moderate to high complexity , patient's has multiple comorbidities.
== END 2017-05-18 15:40 | disposition short-term general hospital (02) ==
LOC: ER 14:25 → EH 16:14 → UNDOADMOB 16:27 → EH 16:27 → 5 18:29 → 3S 05-18 00:35
PROVIDERS: ADMIT Family Medicine; ATTEND Family Medicine
PROC: HZ31ZZZ Individual Counseling for Substance Abuse Treatment, Behavioral (ICD-10-PCS; principal; 2017-05-17)
DX: I21.4 Non-ST elevation (NSTEMI) myocardial infarction (principal); J43.9 Emphysema, unspecified; E66.09 Other obesity due to excess calories; F41.1 Generalized anxiety disorder; K21.9 Gastro-esophageal reflux disease without esophagitis; I25.119 Atherosclerotic heart disease of native coronary artery with unspecified angina pectoris; I11.0 Hypertensive heart disease with heart failure; I50.9 Heart failure, unspecified; G47.30 Sleep apnea, unspecified; F17.210 Nicotine dependence, cigarettes, uncomplicated; Z79.02 Long term (current) use of antithrombotics/antiplatelets; Z79.899 Other long term (current) drug therapy; Z95.810 Presence of automatic (implantable) cardiac defibrillator; Z91.19 Patient's noncompliance with other medical treatment and regimen; Z95.5 Presence of coronary angioplasty implant and graft; Z82.49 Family history of ischemic heart disease and other diseases of the circulatory system; Z98.51 Tubal ligation status; Z68.37 Body mass index [BMI] 37.0-37.9, adult
CPT/HCPCS: 93005 ×3; 99285; 96374; 36415 ×2; 82553 ×2; 82550 ×2; 85025 ×2; 85610; 85730; 80048; 80053; 81001; 84484 ×2; 80307; 80061; 83880; 71020; 71010; 93010 ×2; 99406; G0378 ×3; J3490 ×11; J1644 ×2; J1940

== ENCOUNTER 2017-08-20 08:45 | Day surgery (SDC) | payer MEDICAID ==
[2017-08-20 11:08] LABS: PROTHROMBIN TIME 12.5 SEC (11.4-15.4)
[2017-08-20 11:09] LABS: PARTIAL THROMBOPLASTIN TIME 28.9 SEC (23.5-35.8)
--- NOTE | 2017-08-20 14:05 | RADIOLOGY REPORT (SQ) ---
EXAM DESCRIPTION: MYELOGRAM LUMBAR; CT LUMBAR SPINE WITH COMPLETED DATE/TIME: 08/20/2017 11:59 am; 08/20/2017 12:17 pm REASON FOR STUDY: INTERVERTEBRAL DISC DEGENERATION LUMBAR REGION M51.36 OTHER INTERVERTEBRAL DISC D EGENERATION, LUMBAR REGION COMPARISON: MRI lumbar spine 06/29/2013 Lumbar spine plain films 04/06/2012 FLUOROSCOPY TIME: 1 minutes 4 seconds TECHNIQUE: Fluoroscopic guided lumbar myelogram. Postmyelogram CT with sagittal and coronal reconstructions, lumbar spine. Images were reviewed at [place] and soft tissue windows. All CT scanners at this facility use dose modulation, iterative reconstruction, and/or weight based d osing when appropriate to reduce radiation dose to as low as reasonably achievable (ALARA). [facility]: Dose Right [facility]: CareDose [facility]: Dose Right [facility]: Teradose 4D [facility]: [employer] LIMITATIONS: None. PROCEDURE: After written consent and assessment were obtained, the patient was brought into the fluo roscopy room and placed prone on the table. The patient's lower back was prepped in a sterile fashio n and an entry site was selected under live fluoroscopic guidance, left paracentral L1-2 level. The e ntry site was anesthetized with 4 mL of 1% lidocaine. A 22 gauge spinal needle was advanced through the skin and into the thecal sac at the left paracentral L1-2 level. Contrast was injected into the thecal sac. Following the procedure the needle was removed and a sterile bandage was placed of the s ite. CONTRAST: 11 mL Isovue M 200. IMAGES ACQUIRED: Prone oblique, semi-erect oblique, upright oblique lumbar fluoro to demonstrates the lumbar nerve roots. Upright lateral flexion and extension lumbar films with myelographic contrast. Prone cross-table lateral view. Postmyelogram CT was performed, reviewed at bone and soft tissue windows with sagittal and coronal re constructions. FINDINGS: SEGMENTATION: Normal. No transitional anatomy. ALIGNMENT: There is minimal grade 1 anterolisthesis of L5 over S1, similar between upright flexion an d extension images and supine CT images. This is unchanged from MRI 06/29/2013. VERTEBRAL BODIES: No fractures. No dislocation. No acute findings. HARDWARE: None in the spine. T11-12: No central or foraminal stenosis. T12-L1: Conus is at the mid T12 vertebral body level. T12-L1 disc space is unremarkable. No centra l or foraminal encroachment. L1-L2: Minimal posterior disc bulge, mild bilateral facet and ligament hypertrophy. No central or fo raminal stenosis. L2-L3: Very mild diffuse posterior disc bulge and bony spurring is present along with mild bilateral facet and ligament hypertrophy. Mild bilateral inferior foraminal narrowing is present without exit nerve root impingement. These findings are similar compared to MRI 06/29/2013. Symmetric filling of the bilateral L2 nerve roots on myelogram L3-L4: Chronic appearing broad diffuse posterior disc bulge and bony spurring is present. This findi ng along with moderate bilateral facet and ligament hypertrophy causes mild central canal stenosis. Asymmetric calcified disc protrusion flattens the thecal sac near the takeoff of the left L4 nerve ro ot in the left lateral recess best shown on axial CT image 60 and 61. This is similar compared to th e MRI from 06/29/2013. Elsewhere at L3-4, there is moderate bilateral foraminal narrowing. Symmetric filling of the L3 nerv e roots bilaterally on myelogram L4-L5: A large right paracentral calcified/ ossified disc herniation is present, flattening the right [place] thecal sac at the takeoff of the right L5 nerve root in the lateral recess. This is also identi fied on myelogram, with flattening of the proximal right L5 nerve root in the lateral recess under fl uoro. Moderate bilateral facet and ligament hypertrophy is present, with mild central canal stenosis at L4- 5. The bilateral L4 nerve roots exit above the ossified disc herniation. There is moderate right an d left foraminal narrowing on CT. However, there is good symmetric filling of the L4 nerve root slee ves bilaterally on myelogram. L5-S1: Minimal grade 1 anterolisthesis of L5 over S1 related to facet arthropathy, stable between sup ine CT and upright flexion and extension fluoro images. No significant central or foraminal stenosis . Symmetric filling of the L5 and proximal S1 nerve root sleeves on myelography. PEDICLES, TRANSVERSE PROCESSES: No fractures. No dislocation. No acute findings. FACETS, POSTERIOR ELEMENTS: No fractures. No dislocation. No spinal stenosis. VISUALIZED RIBS: No fractures. SOFT TISSUES: No significant or acute finding in adjacent soft tissues. OTHER: No other significant finding. IMPRESSION: Chronic appearing calcified disc herniations at L3-4 and L4-5 as above. These are simil ar compared to the MRI 06/29/2013. COMMENT: Patient medication list reviewed: Yes- Quality ID# [id number]:Eligible professional attests to doc umenting in the medical record they obtained, updated, or reviewed the patient's current medications. TECHNICAL DOCUMENTATION: JOB ID: [id number] Quality ID # [id number]: Final reports with documentation of one or more dose reduction techniques (e.g., Au tomated exposure control, adjustment of the mA and/or kV according to patient size, use of iterative reconstruction technique) 2010 [employer]- All Rights Reserved
[2017-08-20 14:24] VITALS: BP 164/90
== END 2017-08-20 14:15 | disposition home or self-care (01) ==
LOC: RAD 08:45
PROVIDERS: ATTEND Family Medicine
PROC: B01BYZZ Fluoroscopy of Spinal Cord using Other Contrast (ICD-10-PCS; principal; 2017-08-20)
DX: M51.36 Other intervertebral disc degeneration, lumbar region (principal); M51.26 Other intervertebral disc displacement, lumbar region; M46.96 Unspecified inflammatory spondylopathy, lumbar region; I11.0 Hypertensive heart disease with heart failure; I50.9 Heart failure, unspecified; F17.210 Nicotine dependence, cigarettes, uncomplicated; Z79.899 Other long term (current) drug therapy; Z79.82 Long term (current) use of aspirin; Z88.8 Allergy status to other drugs, medicaments and biological substances
CPT/HCPCS: 36415; 72132; 72265; 85610; 85730

== ENCOUNTER 2018-04-20 00:32 | Emergency (ER) | payer MEDICAID ==
[2018-04-20] MEDS ORDERED: DEXAMETHASONE SOD PHOS INJ 10 MG/1 ML VIAL IV ONE (00:51)
[2018-04-20] MEDS ORDERED: IPRATROPIUM/ALBUTEROL 0.5-2.5 MG/3 ML AMPUL NEB ONE (00:51)
--- NOTE | 2018-04-20 00:56 | ER Document Report ---
ED General - General Chief Complaint: Breathing Difficulty Stated Complaint: DIFFICULTY BREATHING Time Seen by Provider: 04/20/18 00:45 TRAVEL OUTSIDE OF THE [place] IN LAST 30 DAYS: No - HPI Notes: Patient is a 43-year-old female with a history of COPD, CHF with EF less than 30 % status post AICD and pacer placement, history of tachydysrhythmias, ACS, and hypertension who presents to the ED complaining of intermittent dry nonproductive cough, wheezing, dyspnea 3 months. Patient states that she was given inhalers for her COPD which have not been helping with her wheezing. Patient states that nobody position worsens or improves her symptoms. Patient states that she is still ambulatory without any difficulties or development of chest pain. Patient states that she has not had any chest pain associated with the symptoms. Patient states that on some days the cough will be there and on others the cough will be absent. She is otherwise eating and drinking without any difficulties. She is urinating normally and having normal bowel movements. Denies any hormone use, recent surgery/trauma, previous DVT/PE, cancer history. Patient does admit to smoking. Denies any headache, fever, URI, sore throat, chest pain, palpitations, syncope, abdominal pain, nausea/vomiting/ diarrhea, urinary retention, dysuria, hematuria, back pain, loss of control of bowel or bladder, numbness/tingling, muscle paralysis/weakness, or rash. - Related Data Allergies/Adverse Reactions: lisinopril [Lisinopril] Allergy (Mild, Verified 08/20/17 08:59) Past Medical History - Social History Smoking Status: Current Every Day Smoker Family History: CAD, Hypertension - Past Medical History Cardiac Medical History: Reports: Hx Coronary Artery Disease, Hx Heart Attack - x5, Hx Hypercholesterolemia, Hx Hypertension Pulmonary Medical History: Reports: Hx Asthma, Hx COPD Denies: Hx Bronchitis, Hx Pneumonia Neurological Medical History: Denies: Hx Cerebrovascular Accident, Hx Seizures Renal/ Medical History: Denies: Hx Peritoneal Dialysis GI Medical History: Reports: Hx Gastroesophageal Reflux Disease Musculoskeltal Medical History: Reports Hx Arthritis Skin Medical History: Reports Hx Eczema Psychiatric Medical History: Reports: Hx Depression Past Surgical History: Reports: Hx Cardiac Catheterization - w/ stent, Hx Cardiac Surgery - Defibrilator 08/03/15, Hx Section, Hx Gynecologic Surgery - Tubular Ligation, Hx Internal Defibrillator - Single-chamber defibrillator placement - Immunizations Immunizations up to date: No Hx Diphtheria, Pertussis, Tetanus Vaccination: Yes Review of Systems - Review of Systems -: Yes All other systems reviewed and negative Physical Exam - Vital signs Vitals: Temp Pulse Resp BP Pulse Ox 98.5 F 93 20 155/98 H 98 04/20/18 00:39 04/20/18 00:39 04/20/18 00:39 04/20/18 00:39 04/20/18 00:39 - Notes Notes: PHYSICAL EXAMINATION: GENERAL: Well-appearing, well-nourished and in no acute distress. HEAD: Atraumatic, normocephalic. EYES: Pupils equal round and reactive to light, extraocular movements intact, sclera anicteric, conjunctiva are normal. ENT: Nares patent and without discharge. oropharynx clear without exudates. No tonsilar hypertrophy or erythema. Moist mucous membranes. NECK: Normal range of motion, supple without lymphadenopathy LUNGS: wheezing b/l. no obvious crackles. no retractions. HEART: Regular rate and rhythm without murmurs, rubs, gallops. ABDOMEN: Soft, nontender, nondistended abdomen. No guarding, no rebound. No masses appreciated. Normal bowel sounds present. No CVA tenderness bilaterally. Musculoskeletal: FROM to passive/active. Strength 5+/5. Extremities: Trace pitting edema b/l. Peripheral pulses 2+. Capillary refill less than 3 seconds. NEUROLOGICAL: Normal speech, normal gait. PSYCH: Normal mood, normal affect. SKIN: Warm, Dry, normal turgor, no rashes or lesions noted. Course - Re-evaluation Re-evalutation: 04/20/18 02:[address] Lopez who is in agreement with dispo/plan: Patient is an afebrile, well-hydrated, 43-year-old female who presents to the ED with peribronchial thickening, viral versus atypical infection. Vitals are acceptable without any significant tachycardia, tachypnea, or hypoxia. PE is otherwise unremarkable. Patient was given DuoNeb, magnesium, Decadron. Patient states that she is much better and can take deep breaths again without any difficulties. Lung sounds did improve from initial examination. Patient is nontoxic-appearing and is tolerating p.o. without difficulties. Patient states that she would like to go home. CBC, CMP, cardiac enzymes/EKG were unremarkable for any acute pathology. BNP was mildly elevated, advised patient to review this with her PCM on Saturday. See chest x-ray. Pt has not had any CP before or during her visit. No other labs or imaging warranted at this time based on H&P. Low suspicion for any ACS, PE, pneumothorax, pericarditis, dissection, respiratory compromise, severe dehydration, sepsis, meningitis, or other systemic emergent condition at this time. Patient is aware that her condition can change from initial presentation and she needs to monitor symptoms closely and seek medical attention for any acute changes. I will send her home with a prescription for Zithromax. Recommend conservative measures for symptoms. Recheck with your PCM in 2-3 days. Return to the ED with any worsening/concerning symptoms otherwise as reviewed in discharge. Patient is in agreement. - Vital Signs Vital signs: Temp Pulse Resp BP Pulse Ox 98.5 F 93 20 155/98 H 98 04/20/18 00:39 04/20/18 00:39 04/20/18 00:39 04/20/18 00:39 04/20/18 00:39 - Laboratory Result Diagrams: 04/20/18 01:25 04/20/18 01:25 Laboratory results interpreted by me: 04/20/18 04/20/18 01:25 01:25 RDW 15.8 H NT-Pro-B Natriuret Pep 1640 H Discharge - Discharge Clinical Impression: Peribronchial pneumonia Condition: Stable Disposition: HOME, SELF-CARE Instructions: Pneumonia ([facility]), Azithromycin ([facility]) Additional Instructions: Maintain adequate fluid intake Take meds as directed Use inhalers regularly tylenol/ibuprofen as needed over the counter cold medication as needed for symptoms Humidified air may help Wash your hands regularly Wear a mask when coughing F/u: with your PCM in 2-3 days for a recheck Return to the ED with any fever, worsening pain, chest pain, palpitations, syncope, worsening NETTLES, neck pain/stiffness, shortness of breath, wheezing, drooling, trouble swallowing/breathing, abdominal pain, n/v/d, rash, or worsening/concerning symptoms otherwise. Prescriptions: Azithromycin [Zithromax 250 mg Tablet] 250 mg PO ASDIR PRN #6 tablet PRN Reason: Forms: Elevated Blood Pressure, Smoking Cessation Education Referrals: DIANNE HANSON MD [Primary Care Provider] - 04/21/18
[2018-04-20] MEDS: MAGNESIUM SULFATE/D5W 1 GM/100 ML RTUPB IV PRN ×2 (01:18→01:46)
[2018-04-20 01:37] LABS: ABSOLUTE BASOPHILS # (AUTO) 0.1 10^3/uL (0.0-0.2); ABSOLUTE EOSINOPHILS # (AUTO) 0.1 10^3/uL (0.0-0.6); ABSOLUTE LYMPHOCYTES (AUTO) 3.5 10^3/uL (0.5-4.7); ABSOLUTE MONOCYTES (AUTO) 0.5 10^3/uL (0.1-1.4); ABSOLUTE NEUT (AUTO) 4.9 10^3/uL (1.7-8.2); BASOPHILS % (AUTO) 1.2 % (0-2); HEMATOCRIT 38.1 % (36.0-47.0); HEMOGLOBIN 13.1 g/dL (12.0-15.5); MEAN CORPUSCULAR HEMOGLOBIN 31.9 pg (27.0-33.4); MEAN CORPUSCULAR HGB CONC 34.4 g/dL (32.0-36.0); MEAN CORPUSCULAR VOLUME 93 fl (80-97); PLATELET COUNT 301 10^3/uL (150-450); RED BLOOD COUNT 4.11 10^6/uL (3.72-5.28); RED CELL DISTRIBUTION WIDTH 15.8 % (11.5-14.0); SEGMENTED NEUTROPHILS % (AUTO) 53.8 % (42-78); TOTAL CELLS COUNTED % (AUTO) 100 %; WHITE BLOOD COUNT 9.1 10^3/uL (4.0-10.5)
[2018-04-20 01:46] LABS: ALANINE AMINOTRANSFERASE 19 U/L (9-52); ALBUMIN 3.7 g/dL (3.5-5.0); ALKALINE PHOSPHATASE 63 U/L (38-126); ANION GAP 9 (5-19); ASPARTATE AMINO TRANSFERASE 23 U/L (14-36); BILIRUBIN,DIRECT 0.3 mg/dL (0.0-0.4); BILIRUBIN,TOTAL 0.6 mg/dL (0.2-1.3); BLOOD UREA NITROGEN 7 mg/dL (7-20); CALCIUM 8.7 mg/dL (8.4-10.2); CARBON DIOXIDE 26 mmol/L (22-30); CHLORIDE 104 mmol/L (98-107); GLUCOSE 86 mg/dL (75-110); POTASSIUM 4.1 mmol/L (3.6-5.0); SODIUM 138.8 mmol/L (137-145); TOTAL PROTEIN 6.9 g/dL (6.3-8.2)
--- NOTE | 2018-04-20 01:51 | RADIOLOGY REPORT (SQ) ---
Clinical History : cough, wheezing , Exam : PA and lateral views of the chest 04/20/2018 12:50 AM CDT Comparisons : PA and lateral views of the chest May 17, 2017 Findings : There is increasing mild diffuse peribronchial thickening throughout the lungs bilaterally. There is no focal consolidation or pleural effusion.. The heart is normal in size. The mediastinal contours are normal in appearance. The thoracic spine is age appropriate. The shoulders are unremarkable. Limited evaluation of the upper abdomen demonstrates no gross abnormalities. Impression: Mild peribronchial thickening without focal consolidation, likely representing viral or atypical infectious process versus less likely pulmonary edema.
[2018-04-20 01:57] LABS: TROPONIN I 0.017 ng/mL
[2018-04-20 02:30] VITALS: BP 142/89
--- NOTE | 2018-04-20 07:51 | EKG REPORT ---
SEVERITY:- ABNORMAL ECG - SINUS RHYTHM PROBABLE LEFT ATRIAL ABNORMALITY NONSPECIFIC INTRAVENTRICULAR CONDUCTION DELAY LEFT VENTRICULAR HYPERTROPHY NONSPECIFIC ST-T CHANGES- INFEROLATERAL LEADS : Confirmed by: Preston Barbosa MD 20-Apr-2018 07:50:44
== END 2018-04-20 02:35 | disposition home or self-care (01) ==
LOC: ER 00:32
DX: J18.8 Other pneumonia, unspecified organism (principal); J44.9 Chronic obstructive pulmonary disease, unspecified; I50.9 Heart failure, unspecified; Z95.810 Presence of automatic (implantable) cardiac defibrillator; I11.0 Hypertensive heart disease with heart failure; F17.200 Nicotine dependence, unspecified, uncomplicated
CPT/HCPCS: 93005; 94640; 99285; 96375; 96365; 36415; 85025; 80053; 84484; 83880; 71046; 93010; J3475; J1100; J7620

== ENCOUNTER 2018-06-23 22:53 | Emergency (ER) | payer MEDICAID ==
--- NOTE | 2018-06-23 23:03 | ER Document Report ---
ED Medical Screen (RME) - General Chief Complaint: Breathing Difficulty Stated Complaint: SHORTNESS OF BREATH Time Seen by Provider: 06/23/18 23:00 Mode of Arrival: Wheelchair Information source: Patient Notes: PT presents with SOB since Saturday. Reports hx of CAD, Stents, COPD. Reports increased weight gain. C/O n/v a few days ago. TRAVEL OUTSIDE OF THE [place] IN LAST 30 DAYS: No - Related Data Allergies/Adverse Reactions: lisinopril [Lisinopril] Allergy (Mild, Verified 06/23/18 22:58) Past Medical History - Social History Family history: Reviewed & Not Pertinent - Past Medical History Cardiac Medical History: Reports: Hx Coronary Artery Disease, Hx Heart Attack - x5, Hx Hypercholesterolemia, Hx Hypertension Pulmonary Medical History: Reports: Hx Asthma, Hx COPD Denies: Hx Bronchitis, Hx Pneumonia Neurological Medical History: Denies: Hx Cerebrovascular Accident, Hx Seizures Renal/ Medical History: Denies: Hx Peritoneal Dialysis GI Medical History: Reports: Hx Gastroesophageal Reflux Disease Musculoskeltal Medical History: Reports Hx Arthritis Skin Medical History: Reports Hx Eczema Psychiatric Medical History: Reports: Hx Depression Past Surgical History: Reports: Hx Cardiac Catheterization - w/ stent, Hx Cardiac Surgery - Defibrilator 08/03/15, Hx Section, Hx Gynecologic Surgery - Tubular Ligation, Hx Internal Defibrillator - Single-chamber defibrillator placement - Immunizations Immunizations up to date: No Hx Diphtheria, Pertussis, Tetanus Vaccination: Yes Physical Exam - Vital signs Vitals: Temp Pulse Resp BP Pulse Ox 97.5 F 112 H 22 H 139/94 H 99 06/23/18 22:57 06/23/18 22:57 06/23/18 22:57 06/23/18 22:57 06/23/18 22:57 Course - Vital Signs Vital signs: Temp Pulse Resp BP Pulse Ox 97.5 F 100 20 156/106 H 97 06/23/18 22:57 06/24/18 04:39 06/24/18 04:39 06/24/18 04:39 06/24/18 04:39 - Laboratory Result Diagrams: 06/24/18 02:15 06/24/18 02:15 Laboratory results interpreted by me: 06/23/18 06/24/18 06/24/18 23:22 02:15 02:15 RDW 15.7 H Creatine Kinase 670 H CK-MB (CK-2) NT-Pro-B Natriuret Pep Urine Blood SMALL H Ur Leukocyte Esterase TRACE H 06/24/18 02:15 RDW Creatine Kinase CK-MB (CK-2) 7.13 H NT-Pro-B Natriuret Pep 1370 H Urine Blood Ur Leukocyte Esterase Doctor's Discharge - Discharge Clinical Impression: COPD exacerbation, Peripheral edema Condition: Stable Disposition: HOME, SELF-CARE Instructions: Chronic Obstructive Lung Disease ([facility]) Additional Instructions: Please return to the emergency department if you have any worsening, or concern of your symptoms. Please return to the emergency department if you develop chest pain, difficulty breathing, severe abdominal pain, or ongoing vomiting. Please follow-up with your primary care physician in 2-3 days and any other recommended physicians. If prescribed, take all medications as directed. If you have any questions or concerns do not hesitate to return the emergency department for evaluation. Prescriptions: Amox Tr/Potassium Clavulanate [Augmentin 875-125 Tablet] 1 tab PO BID 10 Days # 20 tablet Furosemide [Lasix 20 mg Tablet] 20 mg PO DAILY #7 tablet Prednisone [Deltasone 20 mg Tablet] 3 tab PO DAILY 5 Days #15 tablet Referrals: DIANNE HANSON MD [Primary Care Provider] - Follow up tomorrow
--- NOTE | 2018-06-23 23:40 | RADIOLOGY REPORT (SQ) ---
XR CHEST 2 VIEWS HISTORY: Shortness of breath. COMPARISON: 05/17/2017 FINDINGS/IMPRESSION: Stable single lead left chest wall pacemaker. Query mild cardiomegaly, unchanged. Pulmonary vasculature is normal. Lungs are clear. No pleural effusion or pneumothorax is seen. No acute osseous findings.
[2018-06-23 23:53] LABS: APPEARANCE,URINE CLOUDY; BILIRUBIN,URINE NEGATIVE (NEGATIVE); COLOR,URINE YELLOW; GLUCOSE, URINE NEGATIVE (NEGATIVE); KETONES,URINE NEGATIVE (NEGATIVE); LEUKOCYTE ESTERASE,URINE TRACE (NEGATIVE); NITRITE,URINE NEGATIVE (NEGATIVE); PROTEIN,URINE NEGATIVE (NEGATIVE); URINE SPECIFIC GRAVITY 1.006; UROBILINOGEN,URINE NEGATIVE mg/dL (<2.0)
[2018-06-24 02:36] LABS: ABSOLUTE EOSINOPHILS # (AUTO) 0.1 10^3/uL (0.0-0.6); ABSOLUTE MONOCYTES (AUTO) 0.5 10^3/uL (0.1-1.4); ABSOLUTE NEUT (AUTO) 4.8 10^3/uL (1.7-8.2); BASOPHILS % (AUTO) 0.4 % (0-2); EOSINOPHILS % (AUTO) 0.6 % (0-6); HEMATOCRIT 37.8 % (36.0-47.0); HEMOGLOBIN 12.7 g/dL (12.0-15.5); LYMPHOCYTES % (AUTO) 36.1 % (13-45); MEAN CORPUSCULAR HEMOGLOBIN 31.2 pg (27.0-33.4); MEAN CORPUSCULAR HGB CONC 33.6 g/dL (32.0-36.0); MEAN CORPUSCULAR VOLUME 93 fl (80-97); MONOCYTES % (AUTO) 5.8 % (3-13); PLATELET COUNT 268 10^3/uL (150-450); RED BLOOD COUNT 4.08 10^6/uL (3.72-5.28); RED CELL DISTRIBUTION WIDTH 15.7 % (11.5-14.0); SEGMENTED NEUTROPHILS % (AUTO) 57.1 % (42-78); TOTAL CELLS COUNTED % (AUTO) 100 %; WHITE BLOOD COUNT 8.4 10^3/uL (4.0-10.5)
[2018-06-24 02:45] LABS: ALANINE AMINOTRANSFERASE 25 U/L (9-52); ALBUMIN 3.7 g/dL (3.5-5.0); ALKALINE PHOSPHATASE 60 U/L (38-126); ANION GAP 9 (5-19); ASPARTATE AMINO TRANSFERASE 25 U/L (14-36); BILIRUBIN,DIRECT 0.2 mg/dL (0.0-0.4); BILIRUBIN,TOTAL 0.3 mg/dL (0.2-1.3); BLOOD UREA NITROGEN 9 mg/dL (7-20); CALCIUM 8.5 mg/dL (8.4-10.2); CARBON DIOXIDE 24 mmol/L (22-30); CHLORIDE 107 mmol/L (98-107); CREATINE KINASE 670 U/L (30-135); GLUCOSE 82 mg/dL (75-110); POTASSIUM 3.8 mmol/L (3.6-5.0); SODIUM 139.7 mmol/L (137-145)
[2018-06-24 02:57] LABS: CREATINE KINASE MB 7.13 ng/mL (<4.55); TROPONIN I 0.019 ng/mL
[2018-06-24] MEDS ORDERED: IPRATROPIUM/ALBUTEROL 0.5-2.5 MG/3 ML AMPUL NEB ONE (03:50)
[2018-06-24] MEDS ORDERED: PREDNISONE 20 MG TABLET PO ONE (03:50)
[2018-06-24] MEDS ORDERED: AMOXICILLIN TR/POT CLAVULANATE 500-125 MG TAB PO ONE (03:54)
--- NOTE | 2018-06-24 04:22 | ER Document Report ---
ED General - General Chief Complaint: Breathing Difficulty Stated Complaint: SHORTNESS OF BREATH Time Seen by Provider: 06/23/18 23:00 Mode of Arrival: Wheelchair Information source: Patient Notes: Patient is a 43-year-old female with COPD and CHF that presents to the emergency department for chief complaint of cough and shortness of breath. Patient states she has been having increased shortness of breath of the last several days, as well as cough with productive sputum. She has also noticed she has been orthopneic, and had some more swelling in her lower extremities and weight gain. She does have a history of CHF, and has an AICD. She was on Lasix, but has not taken it for almost a year, she took an old Lasix pill a few days ago because she noticed weight gain. 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 She has been using her albuterol inhaler at home, as well as her Spiriva. Denies any recent corticosteroid use. She denies having any fevers, chills, night sweats, chest pain, nausea, vomiting or abdominal pain. Past Medical History: COPD, CHF, hypertension, peripheral edema Past Surgical History: AICD pacemaker placement Social History: Admits to smoking cigarettes, denies alcohol or drug use Family History: Reviewed and noncontributory for presenting illness Allergies: Reviewed, see documented allergy list. REVIEW OF SYSTEMS: Unless otherwise stated in this report the patient's positive and negative responses for review of systems for constitutional, eyes, ENT, cardiovascular, respiratory, gastrointestinal, neurological, genitourinary, musculoskeletal, and integumentary systems and related systems to the presenting problem are either as stated in the HPI or were not pertinent or were negative for the symptoms and/or complaints related to the presenting medical problem. PHYSICAL EXAMINATION: Vital signs reviewed, nursing noted reviewed. GENERAL: Obese female, well-nourished and in no acute distress. HEAD: Atraumatic, normocephalic. EYES: Eyes appear normal, extraocular movements intact, sclera anicteric, conjunctiva are normal. ENT: nares patent, oropharynx clear without exudates. Moist mucous membranes. NECK: Normal range of motion, supple without lymphadenopathy LUNGS: Expiratory wheezing noted throughout all lung baker, crackles noted at the bases, wet cough on exam HEART: Regular rate and rhythm without murmurs ABDOMEN: Soft, obese, nontender, normoactive bowel sounds. No rebound, guarding , or rigidity. No masses appreciated. EXTREMITIES: Nontender, good range of motion, plus pitting edema to the mid tibias bilaterally, equal, no erythema, or tenderness NEUROLOGICAL: No focal neurological deficits. Moves all extremities spontaneously Motor and sensory grossly intact on exam. PSYCH: Normal mood, normal affect. SKIN: Warm, Dry, normal turgor, no rashes or lesions noted on exposed skin TRAVEL OUTSIDE OF THE [place] IN LAST 30 DAYS: No - Related Data Allergies/Adverse Reactions: lisinopril [Lisinopril] Allergy (Mild, Verified 06/23/18 22:58) Past Medical History - General Information source: Patient - Social History Smoking Status: Current Every Day Smoker Family History: CAD, Hypertension - Past Medical History Cardiac Medical History: Reports: Hx Coronary Artery Disease, Hx Heart Attack - x5, Hx Hypercholesterolemia, Hx Hypertension Pulmonary Medical History: Reports: Hx Asthma, Hx COPD Denies: Hx Bronchitis, Hx Pneumonia Neurological Medical History: Denies: Hx Cerebrovascular Accident, Hx Seizures Renal/ Medical History: Denies: Hx Peritoneal Dialysis GI Medical History: Reports: Hx Gastroesophageal Reflux Disease Musculoskeletal Medical History: Reports Hx Arthritis Skin Medical History: Reports Hx Eczema Psychiatric Medical History: Reports: Hx Depression Past Surgical History: Reports: Hx Cardiac Catheterization - w/ stent, Hx Cardiac Surgery - Defibrilator 08/03/15, Hx Section, Hx Gynecologic Surgery - Tubular Ligation, Hx Internal Defibrillator - Single-chamber defibrillator placement - Immunizations Immunizations up to date: No Hx Diphtheria, Pertussis, Tetanus Vaccination: Yes Physical Exam - Vital signs Vitals: Temp Pulse Resp BP Pulse Ox 97.5 F 112 H 22 H 139/94 H 99 06/23/18 22:57 06/23/18 22:57 06/23/18 22:57 06/23/18 22:57 06/23/18 22:57 Course - Re-evaluation Re-evalutation: Patient seen and examined vital signs reviewed. Laboratory data and imaging were ordered as appropriate for the patient's presenting symptoms and complaint, with consideration of any critical or life threatening conditions that may be associated with their obtained history and exam as noted above. Patient was treated with DuoNeb breathing treatments, and prednisone Results were reviewed when available and demonstrated negative chest x-ray, BNP was elevated, but appears to be at her baseline, based on prior labs, renal function unremarkable, troponin negative The patient was re-evaluated and was improved, wheezing resolved, she was breathing better and felt better Evaluation was most consistent with acute COPD exacerbation, and mild CHF exacerbation, I will discharge the patient home on oral steroid, I will give her an antibiotic with Augmentin, given that she has structural lung disease, and is prone to pneumonias, I also gave her prescription for Lasix 20 mg for 7 days given that she has had increased weight gain and peripheral edema to treat possible early CHF exacerbation she is advised to follow-up with her primary care physician, for continuity and continuation of this medication if needed. Results were discussed with the patient at this point, after careful consideration I feel that that patient can be discharged from the emergency department, the patient was educated treatments and reasons to return to the emergency department based on their presumed diagnosis as noted above, they were advised to followup with a primary care physician in 2-3 days. Patient was agreeable to plan of care. *Note is created using voice recognition software and may contain spelling, syntax or grammatical errors. Laboratory 06/23/18 06/24/18 06/24/18 23:22 02:15 02:15 WBC 8.4 RBC 4.08 Hgb 12.7 Hct 37.8 MCV 93 MCH 31.2 MCHC 33.6 RDW 15.7 H Plt Count 268 Seg Neutrophils % 57.1 Lymphocytes % 36.1 Monocytes % 5.8 Eosinophils % 0.6 Basophils % 0.4 Absolute Neutrophils 4.8 Absolute Lymphocytes 3.0 Absolute Monocytes 0.5 Absolute Eosinophils 0.1 Absolute Basophils 0.0 Sodium 139.7 Potassium 3.8 Chloride 107 Carbon Dioxide 24 Anion Gap 9 BUN 9 Creatinine 0.89 Est GFR ( Amer) > 60 Est GFR (Non-Af Amer) > 60 Glucose 82 Calcium 8.5 Total Bilirubin 0.3 Direct Bilirubin 0.2 Neonat Total Bilirubin Not Reportable Neonat Direct Bilirubin Not Reportable Neonat Indirect Bili Not Reportable AST 25 ALT 25 Alkaline Phosphatase 60 Creatine Kinase 670 H CK-MB (CK-2) Troponin I NT-Pro-B Natriuret Pep Total Protein 7.0 Albumin 3.7 Urine Color YELLOW Urine Appearance CLOUDY Urine pH 6.0 Ur Specific [place] 1.006 Urine Protein NEGATIVE Urine Glucose (UA) NEGATIVE Urine Ketones NEGATIVE Urine Blood SMALL H Urine Nitrite NEGATIVE Urine Bilirubin NEGATIVE Urine Urobilinogen NEGATIVE Ur Leukocyte Esterase TRACE H Urine WBC (Auto) 5 Urine RBC (Auto) 2 Urine Bacteria (Auto) TRACE Squamous Epi Cells Auto 16 Urine Ascorbic Acid NEGATIVE 06/24/18 02:15 WBC RBC Hgb Hct MCV MCH MCHC RDW Plt Count Seg Neutrophils % Lymphocytes % Monocytes % Eosinophils % Basophils % Absolute Neutrophils Absolute Lymphocytes Absolute Monocytes Absolute Eosinophils Absolute Basophils Sodium Potassium Chloride Carbon Dioxide Anion Gap BUN Creatinine Est GFR ( Amer) Est GFR (Non-Af Amer) Glucose Calcium Total Bilirubin Direct Bilirubin Neonat Total Bilirubin Neonat Direct Bilirubin Neonat Indirect Bili AST ALT Alkaline Phosphatase Creatine Kinase CK-MB (CK-2) 7.13 H Troponin I 0.019 NT-Pro-B Natriuret Pep 1370 H Total Protein Albumin Urine Color Urine Appearance Urine pH Ur Specific [place] Urine Protein Urine Glucose (UA) Urine Ketones Urine Blood Urine Nitrite Urine Bilirubin Urine Urobilinogen Ur Leukocyte Esterase Urine WBC (Auto) Urine RBC (Auto) Urine Bacteria (Auto) Squamous Epi Cells Auto Urine Ascorbic Acid Chest X-Ray 06/23/18 23:00 FINDINGS/IMPRESSION: Stable single lead left chest wall pacemaker. Query mild cardiomegaly, unchanged. Pulmonary vasculature is normal. Lungs are clear. No pleural effusion or pneumothorax is seen. No acute osseous findings. - Vital Signs Vital signs: Temp Pulse Resp BP Pulse Ox 97.5 F 100 20 156/106 H 97 06/23/18 22:57 06/24/18 04:39 06/24/18 04:39 06/24/18 04:39 06/24/18 04:39 - Laboratory Result Diagrams: 06/24/18 02:15 06/24/18 02:15 Laboratory results interpreted by me: 06/23/18 06/24/18 06/24/18 23:22 02:15 02:15 RDW 15.7 H Creatine Kinase 670 H CK-MB (CK-2) NT-Pro-B Natriuret Pep Urine Blood SMALL H Ur Leukocyte Esterase TRACE H 06/24/18 02:15 RDW Creatine Kinase CK-MB (CK-2) 7.13 H NT-Pro-B Natriuret Pep 1370 H Urine Blood Ur Leukocyte Esterase Discharge - Discharge Clinical Impression: COPD exacerbation, Peripheral edema Condition: Stable Disposition: HOME, SELF-CARE Instructions: Chronic Obstructive Lung Disease ([facility]) Additional Instructions: Please return to the emergency department if you have any worsening, or concern of your symptoms. Please return to the emergency department if you develop chest pain, difficulty breathing, severe abdominal pain, or ongoing vomiting. Please follow-up with your primary care physician in 2-3 days and any other recommended physicians. If prescribed, take all medications as directed. If you have any questions or concerns do not hesitate to return the emergency department for evaluation. Prescriptions: Amox Tr/Potassium Clavulanate [Augmentin 875-125 Tablet] 1 tab PO BID 10 Days # 20 tablet Furosemide [Lasix 20 mg Tablet] 20 mg PO DAILY #7 tablet Prednisone [Deltasone 20 mg Tablet] 3 tab PO DAILY 5 Days #15 tablet Referrals: DIANNE HANSON MD [Primary Care Provider] - Follow up tomorrow
[2018-06-24 04:46] VITALS: BP 156/106
--- NOTE | 2018-06-24 09:32 | EKG REPORT ---
SEVERITY:- ABNORMAL ECG - SINUS TACHYCARDIA PROBABLE LEFT ATRIAL ABNORMALITY NONSPECIFIC INTRAVENTRICULAR CONDUCTION DELAY LEFT VENTRICULAR HYPERTROPHY : Confirmed by: Chetan Jaramillo 24-Jun-2018 09:31:48
== END 2018-06-24 04:38 | disposition home or self-care (01) ==
LOC: ER 22:53
DX: J44.1 Chronic obstructive pulmonary disease with (acute) exacerbation (principal); R60.9 Edema, unspecified; R06.02 Shortness of breath; R05 Cough; I10 Essential (primary) hypertension; F17.210 Nicotine dependence, cigarettes, uncomplicated; I25.10 Atherosclerotic heart disease of native coronary artery without angina pectoris
CPT/HCPCS: 93005; 94640; 99285; 36415; 82553; 82550; 85025; 80053; 81001; 84484; 83880; 71046; 93010; J3490; J7512; J7620